=== PATIENT | female | born 1955 | race African-American/Black ===

== ENCOUNTER 2016-09-20 07:31 | Emergency (ER) | payer MEDICAID ==
[~2016-09-20] VITALS: Ht 162.6 cm; Wt 88.5 kg
[~2016-09-20 07:31] MED LIST: AMOXICILLIN500 MG ORAL; CYCLOBENZAPRINE10 MG ORAL; DIFLUCAN150 MG PO; IBUPROFEN600 MG ORAL; METFORMIN HCL500 M1 ORAL; NORCO 5-325 TA1 EACH ORAL
[2016-09-20 07:35] VITALS: BP 118/65
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
[2016-09-20] MEDS ORDERED: ACETAMINOPHEN-1 EAC1 ORAL (09:03)
[2016-09-20 09:10] VITALS: BP 119/63
--- NOTE | 2016-09-20 11:20 | Diagnostic Imaging Report ---
Indication: pain Findings: 3 views of the right hand were obtained. Bones are osteopenic. Narrowing of several joints within the wrist and digits noted. Scattered osteophytes are noted at the margins. Impression: Osteoarthritis
--- NOTE | 2016-09-22 08:29 | Diagnostic Imaging Report ---
Indication: Pain Findings: 3 views of the right shoulder were obtained. No acute fractures, malalignment, erosions or periostitis are identified. Osteopenia noted.. Soft tissues are unremarkable. Impression: Osteopenia
== END 2016-09-20 09:10 | disposition home or self-care (01) ==
LOC: EMR 08:02
DX: M25.511 Pain in right shoulder (principal); M25.541 Pain in joints of right hand; Z91.81 History of falling; E11.9 Type 2 diabetes mellitus without complications; M19.041 Primary osteoarthritis, right hand; M85.811 Other specified disorders of bone density and structure, right shoulder
CPT/HCPCS: 99284

== ENCOUNTER 2016-11-30 03:47 | Emergency (ER) | payer MEDICAID ==
[~2016-11-30] VITALS: Ht 165.1 cm; Wt 85.7 kg
[~2016-11-30 03:47] MED LIST changes: +ACETAMINOPHEN-1 EAC1 ORAL
[2016-11-30] MEDS ORDERED: GABAPENTIN100 MG ORAL (03:55)
[2016-11-30] MEDS ORDERED: Tetanus/Diptheria/Pertussis Vaccine 0.5ml Syr IM ONE (04:15)
--- NOTE | 2016-11-30 04:55 | Emergency Room Report ---
History of Present Illness General Chief Complaint: Neck Pain Source: Patient Present Illness HPI 61-year-old female presents ED complaining of neck stiffness and right knee pain. States that last night she started to develop facial pressure and stiffness in her neck. Patient states that she has a history of sinus infections and whenever she develops a sinus infection she gets neck stiffness. States her symptoms always resolve with antibiotics. Has been ear many times in the past for the same presentation. Notes 6/10 pain, throbbing, nonradiating. Denies photophobia blurry vision nausea or vomiting. Denies chest pain or shortness of breath. Denies fevers or chills. Patient states while coming to the hospital tonight she tripped and fell landing on her right knee. Tetanus unknown. Notes pain but is able to walk. No aggravating relieving factors. Denies any other systems symptoms Allergies: Coded Allergies: No Known Allergies (Unverified , 10/02/13) Patient History Past Medical History: none, DM Past Surgical History: none Pertinent Family History: none Social History: Denies: smoking, alcohol use, drug use Last Menstrual Period: none Now: No Immunizations: UTD Reviewed Nursing Documentation: PMH: Agreed, PSxH: Agreed Nursing Documentation-PMH Hx Diabetes: Yes Review of Systems All Other Systems: negative except mentioned in HPI Physical Exam Vital Signs Date Time Temp Pulse Resp B/P (MAP) Pulse Ox O2 Delivery O2 Flow Rate FiO2 11/30/16 03:50 97.9 87 18 130/83 98 Room Air Sp02 EP Interpretation: reviewed, normal General Appearance: no apparent distress, alert, GCS 15, non-toxic Head: normocephalic Eyes: bilateral eye normal inspection, bilateral eye PERRL ENT: hearing grossly normal, normal pharynx, no angioedema, normal voice, TMs + canals normal Neck: full range of motion, supple, no meningismus, supple/symm/no masses Respiratory: normal inspection Cardiovascular #1: normal inspection Gastrointestinal: normal inspection Rectal: deferred Genitourinary: no CVA tenderness Musculoskeletal: normal range of motion, tender - R knee Neurologic: alert, oriented x3, responsive, motor strength/tone normal, sensory intact, speech normal Psychiatric: normal inspection Skin: abrasions - R knee Lymphatic: normal inspection Procedures Splinting Splinting : Consent: Verbal Pre-Made Type: DARIANA wrap - R knee Pre-Proc Neuro Vasc Exam: normal Post-Proc Neuro Vasc Exam: normal Patient Tolerated: Well Complications: None Medical Decision Making Diagnostic Impression: Primary Impression: Sinus infection Qualified Codes: J01.11 - Acute recurrent frontal sinusitis Additional Impression: Knee injury Qualified Codes: S89.91XA - Unspecified injury of right lower leg, initial encounter ER Course Hospital Course 61 year-old F presents to ED complaining of R knee pain s/p fall. c/o sinus pressure and neck pain Differential diagnoses include: Fracture, dislocation, sprain, contusion Clinical course Patient placed on stretcher. After initial history and physical, I ordered pain medications and Xrays of R knee Xrays prelim read shows no acute fracture/dislocation. bacitracin applied. placed in dariana wrap, given crutches Patient has no fever. no photophobia or vomiting. patient has had prior episodes of these symptoms; always resolved with abx. my suspicion of meningitis is low Diagnosis - sinusitis, knee injury Stable and discharged to home with prescription for amoxicillin, tylenol #3. Apply ice, keep elevated. weight bear as tolerated. Followup with PMD. Return to ED if symptoms recur or worsen Other X-Ray Diagnostic Results Other X-Ray Diagnostic Results : X-Ray ordered: R knee # of Views/Limited Vs Complete: 3 View Indication: Pain EP Interpretation: Yes Interpretation: no dislocation, no soft tissue swelling, no fractures Impression: No acute disease Last Vital Signs Date Time Temp Pulse Resp B/P (MAP) Pulse Ox O2 Delivery O2 Flow Rate FiO2 11/30/16 03:50 97.9 87 18 130/83 98 Room Air Status: improved Disposition: HOME, SELF-CARE Condition: Improved Scripts Hydrocortisone/Aloe Vera 1%* (HYDROCORTISONE-ALOE 1% CREAM*) Y Cr 1 APPLIC TOPIC Q6H Y for Itching, #30 GM Prov: SHAD SMART M.D. 11/30/16 Blood Sugar Diagnostic (FREESTYLE LITE STRIPS) 1 Each Strip EACH MC 1-2 times per day, #50 Prov: SHAD SMART M.D. 11/30/16 Acetaminophen With Codeine (T#3) (TYLENOL #3 TAB*) Y Tab 1 TAB ORAL Q8H Y for For Pain, #20 TAB Prov: SHAD SMART M.D. 11/30/16 Amoxicillin* (AMOXIL*) 500 Mg Capsule 500 MG ORAL THREE TIMES A DAY, #21 CAP Prov: SHAD SMART M.D. 11/30/16 Referrals: [facility],REFERRING (PCP) SHAD SMART M.D. Nov 30, 2016 04:55
[2016-11-30 05:15] VITALS: BP 132/85
[2016-11-30] MEDS ORDERED: Bacitracin Oint UD TOPIC ONE (05:45)
[2016-11-30] MEDS ORDERED: AMOXICILLIN500 MG ORAL (05:47)
[2016-11-30] MEDS ORDERED: ACETAMINOPHEN-1 EAC1 ORAL (05:47)
[2016-11-30] MEDS ORDERED: HYDROCORTISONE-30 GM TOPIC (05:57)
[2016-11-30] MEDS ORDERED: FREESTYLE LITE1 EACH MC (05:57)
[2016-11-30 06:00] VITALS: BP 132/85
--- NOTE | 2016-11-30 11:39 | Diagnostic Imaging Report ---
Indication: Pain 3 views of the right knee were obtained. Findings: No acute fracture, malalignment, or joint effusion are identified. Joint space is relatively well-maintained. Impression: Negative for acute findings.
== END 2016-11-30 06:00 | disposition home or self-care (01) ==
LOC: EMR 04:21
DX: J01.11 Acute recurrent frontal sinusitis (principal); S89.91XA Unspecified injury of right lower leg, initial encounter; E11.9 Type 2 diabetes mellitus without complications; Z23 Encounter for immunization; W01.0XXA Fall on same level from slipping, tripping and stumbling without subsequent striking against object, initial encounter; Y92.9 Unspecified place or not applicable
CPT/HCPCS: 90471; 90715; 99284

== ENCOUNTER 2017-05-10 16:07 | Emergency (ER) | payer MEDICAID ==
[~2017-05-10] VITALS: Ht 165.1 cm; Wt 86.2 kg
[~2017-05-10 16:07] MED LIST changes: +FREESTYLE LITE1 EACH MC; +GABAPENTIN100 MG ORAL; +HYDROCORTISONE-30 GM TOPIC
[2017-05-10] MEDS ORDERED: METFORMIN HCL500 M1 ORAL (16:14)
--- NOTE | 2017-05-10 16:38 | Emergency Room Report ---
History of Present Illness General Chief Complaint: Female Urogenital Problems Source: Patient Present Illness HPI 61 YO Female presents to the ED c/o BV infection. pt. reports she used a douche which is not something she regularly does because it usually causes her BV. pt. reports that when rx'd flagyl she also gets yeast cream as she typically will get yeast after abx use. Pt. reports 10/10 in severity vaginal irritation and itching with a mild odor. Denies discharge. pt. denies recent unprotected intercourse and does not feel STD treatment needs to be considered. pt. denies fevers, chills, hematuria, frequency or urgency. Pt. denies vaginal dryness. Denies CP, Palpitations, LOC, AMS, dizziness, Changes in Vision, Sensation, paresthesias, or a sudden severe headache. Allergies: Coded Allergies: No Known Allergies (Unverified , 10/02/13) Patient History Past Medical History: see triage record Past Surgical History: none Pertinent Family History: none Last Menstrual Period: Post Reviewed Nursing Documentation: PMH: Agreed; PSxH: Agreed Nursing Documentation-PMH Hx Diabetes: Yes Review of Systems All Other Systems: negative except mentioned in HPI Physical Exam Vital Signs Date Time Temp Pulse Resp B/P (MAP) Pulse Ox O2 Delivery O2 Flow Rate FiO2 05/10/17 16:10 98.4 78 17 132/74 97 Room Air 98.4 Sp02 EP Interpretation: reviewed, normal General Appearance: no apparent distress, alert, GCS 15, non-toxic Head: normocephalic, atraumatic ENT: hearing grossly normal, normal voice Neck: full range of motion Respiratory: lungs clear, normal breath sounds, speaking full sentences Cardiovascular #1: regular rate, rhythm Gastrointestinal: normal bowel sounds, non tender, soft, non-distended, no guarding Genitourinary: normal inspection, no CVA tenderness, other - pelvic deferred by Pt. Musculoskeletal: back normal, gait/station normal, normal range of motion, non- tender Neurologic: alert, oriented x3, responsive, motor strength/tone normal, sensory intact, speech normal, grossly normal Psychiatric: judgement/insight normal Skin: normal color, no rash, warm/dry, well hydrated Medical Decision Making PA Attestation Dr. Landrum is my supervising Physician whom patient management has been discussed with. Diagnostic Impression: Primary Impression: Bacterial vaginosis Additional Impression: Vaginitis Qualified Codes: N76.0 - Acute vaginitis ER Course 61 YO Female presents to the ED c/o BV infection. pt. reports she used a douche which is not something she regularly does because it usually causes her BV. pt. reports that when rx'd Flagyl she also gets yeast cream as she typically will get yeast after abx use. Pt. reports 10/10 in severity vaginal irritation and itching with a mild odor. Denies discharge. pt. denies recent unprotected intercourse and does not feel STD treatment needs to be considered. pt. denies fevers, chills, hematuria, frequency or urgency. Pt. denies vaginal dryness. Denies CP, Palpitations, LOC, AMS, dizziness, Changes in Vision, Sensation, paresthesias, or a sudden severe headache. Ddx considered but are not limited to UTi , Pyelo, STI, Stone, Cystitis, vaginal laceration, vaginitis, atrophic vaginitis, BV just to name a few. -Pelvic is deferred by Pt. Vital signs: are WNL, pt. is afebrile H& PE are most consistent with: Vaginitis ORDERS: - UA labs are attached : Unremarkable - Most indicative of contamination: presence of equal amounts of bacteria and squamous cells, no appreciative elevation in inflammatory markers, nitrite negative. ED INTERVENTIONS: DISCHARGE: At this time pt. is stable for d/c to home. Will provide printed patient care instructions, and any necessary prescriptions. Care plan and follow up instructions have been discussed with the patient prior to discharge. discussed with the patient prior to discharge. Labs Test 05/10/17 16:20 Urine Color Pale yellow Urine Appearance Slightly cloudy Urine pH 8 (4.5-8.0) Urine Specific [place] 1.005 (1.005-1.035) Urine Protein Negative (NEGATIVE) Urine Glucose (UA) Negative (NEGATIVE) Urine Ketones Negative (NEGATIVE) Urine Occult Blood 1+ (NEGATIVE) Urine Nitrite Negative (NEGATIVE) Urine Bilirubin Negative (NEGATIVE) Urine Urobilinogen Normal MG/DL (0.0-1.0) Urine Leukocyte Esterase 2+ (NEGATIVE) Urine RBC 5-10 /HPF (0 - 2) Urine WBC 2-4 /HPF (0 - 2) Urine Squamous Epithelial Cells Many /LPF (NONE/OCC) Urine Bacteria Many /HPF (NONE) Last Vital Signs Date Time Temp Pulse Resp B/P (MAP) Pulse Ox O2 Delivery O2 Flow Rate FiO2 05/10/17 16:10 98.4 78 17 132/74 97 Room Air 98.4 Disposition: HOME, SELF-CARE Condition: Stable Scripts Miconazole Nitrate (MICONAZOLE 3) 24 Gm Cmb.pf.crm 1 APPLIC VG QHS for 3 Days, #24 GM Prov: Esther Marcum 05/10/17 Metronidazole* (FLAGYL*) 500 Mg Tablet 500 MG ORAL BID for 7 Days, #14 TAB 0 Refills Prov: Esther Marcum 05/10/17 Patient Instructions: Bacterial Vaginosis, [id number], Vaginitis Additional Instructions: Take medications as directed. ! Do not drink alcohol while taking Flagyl/Metronidazole as this will cause a skin reaction. Follow up with a Primary Care Provider in 3-5 days, even if your symptoms have resolved. --Please review list of primary care clinics, if you do not already have a primary care provider Return sooner to ED if new symptoms occur, or current symptoms become worse. - Please note that this Emergency Department Report was dictated using [employer] system operator technology software, occasionally this can lead to erroneous entry secondary to interpretation by the dictation equipment. Esther Marcum May 10, 2017 16:38
[2017-05-10] MEDS ORDERED: MICONAZOLE 324 GM VG (16:39)
[2017-05-10] MEDS ORDERED: METRONIDAZOLE500 MG ORAL (16:39)
[2017-05-10 16:45] VITALS: BP 138/79
[2017-05-10 16:59] LABS: APPEARANCE,URINE SLIGHTLY CLOUDY; BILIRUBIN, URINE NEGATIVE (NEGATIVE); COLOR,URINE PALE YELLOW; GLUCOSE, URINE (UA) NEGATIVE (NEGATIVE); KETONES,URINE NEGATIVE (NEGATIVE); LEUKOCYTE ESTERASE ,URINE 2+ (NEGATIVE); NITRITE,URINE NEGATIVE (NEGATIVE); PH,URINE 8 (4.5-8.0); PROTEIN,URINE NEGATIVE (NEGATIVE); UROBILINOGEN,URINE NORMAL MG/DL (0.0-1.0)
[2017-05-10 17:00] VITALS: BP 132/74
== END 2017-05-10 17:30 | disposition home or self-care (01) ==
LOC: EMR 16:30
DX: N76.0 Acute vaginitis (principal); B96.89 Other specified bacterial agents as the cause of diseases classified elsewhere; E11.9 Type 2 diabetes mellitus without complications
CPT/HCPCS: 81003; 87086; 99284

== ENCOUNTER 2017-05-13 16:19 | Emergency (ER) | payer MEDICAID ==
[~2017-05-13] VITALS: Ht 170.2 cm; Wt 74.8 kg
[~2017-05-13 16:19] MED LIST changes: +METRONIDAZOLE500 MG ORAL; +MICONAZOLE 324 GM VG
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
[2017-05-13] MEDS ORDERED: Norco 5mg/325mg tab ORAL ONE (16:45)
[2017-05-13 17:05] VITALS: BP 112/60
[2017-05-13] MEDS ORDERED: ROBAXIN-750750 MG PO (17:05)
[2017-05-13] MEDS ORDERED: IBUPROFEN600 MG ORAL (17:05)
[2017-05-13 17:30] VITALS: BP 115/78
--- NOTE | 2017-05-14 10:43 | Diagnostic Imaging Report ---
. Indication: Chest pain Technique: XRAY Chest 1v Comparison: None Findings: Slightly rotated and leaning to the left. Heart size within upper limits for normal. Mediastinal contours are sharp. There is no definite focal airspace consolidation. No pleural effusion or pneumothorax. No acute osseous abnormality seen. IMPRESSION: Limited exam due to patient positioning. No definite radiographic evidence of acute cardiopulmonary disease.
== END 2017-05-13 17:30 | disposition home or self-care (01) ==
LOC: EMR 16:35
DX: S20.219A Contusion of unspecified front wall of thorax, initial encounter (principal); E11.9 Type 2 diabetes mellitus without complications; V13.4XXA Pedal cycle driver injured in collision with car, pick-up truck or van in traffic accident, initial encounter; Y93.55 Activity, bike riding; Y92.410 Unspecified street and highway as the place of occurrence of the external cause
CPT/HCPCS: 71045; 99284

== ENCOUNTER 2017-07-13 19:42 | Inpatient (IN) | payer MEDICAID ==
[~2017-07-13] VITALS: Ht 162.6 cm; Wt 86.8 kg
[~2017-07-13 19:42] MED LIST changes: +ROBAXIN-750750 MG PO
[2017-07-13 19:50] VITALS: BP 120/76
[2017-07-13] MEDS ORDERED: Isovue-300 100ml vial INJ PRN (20:00)
[2017-07-13 20:12] LABS: APPEARANCE,URINE CLEAR; BILIRUBIN, URINE NEGATIVE (NEGATIVE); COLOR,URINE PALE YELLOW; GLUCOSE, URINE (UA) NEGATIVE (NEGATIVE); KETONES,URINE NEGATIVE (NEGATIVE); LEUKOCYTE ESTERASE ,URINE 1+ (NEGATIVE); NITRITE,URINE NEGATIVE (NEGATIVE); PH,URINE 9 (4.5-8.0); PROTEIN,URINE 2+ (NEGATIVE); UROBILINOGEN,URINE NORMAL MG/DL (0.0-1.0)
[2017-07-13 20:28] LABS: BASOPHILS % (AUTO) 0.9 % (0.0-2.0); EOSINOPHILS % (AUTO) 2.2 % (0.0-3.0); HEMOGLOBIN 12.4 G/DL (12.0-16.0); LYMPHOCYTES % (AUTO) 24.6 % (20.0-45.0); MEAN CORPUSCULAR VOLUME 78 FL (80-99); MONOCYTES % (AUTO) 3.7 % (1.0-10.0); NEUTROPHILS % (AUTO) 68.7 % (45.0-75.0); PLATELET COUNT 322 K/UL (150-450); RED BLOOD COUNT 5.02 M/UL (4.20-5.40); RED CELL DISTRIBUTION WIDTH 14.1 % (11.6-14.8); WHITE BLOOD COUNT 8.4 K/UL (4.8-10.8)
[2017-07-13 20:36] LABS: ANION GAP 9 mmol/L (5-15); BLOOD UREA NITROGEN 15 mg/dL (7-18); CALCIUM 9.5 MG/DL (8.5-10.1); CARBON DIOXIDE 29 MMOL/L (21-32); CHLORIDE 107 MMOL/L (98-107); POTASSIUM 4.3 MMOL/L (3.5-5.1); SODIUM 145 MMOL/L (136-145)
[2017-07-13 20:42] LABS: ALANINE AMINOTRANSFERASE 38 U/L (12-78); ALBUMIN 3.5 G/DL (3.4-5.0); ALKALINE PHOSPHATASE 78 U/L (46-116); ASPARTATE AMINO TRANSFERASE 22 U/L (15-37); BILIRUBIN,TOTAL 0.2 MG/DL (0.2-1.0)
--- NOTE | 2017-07-13 20:57 | Emergency Room Report ---
History of Present Illness General Chief Complaint: Abdominal Pain Source: Patient Present Illness HPI Patient complains of upper abdominal pain for the past day. She has had nausea and one episode of vomiting. She does have a history of gastritis. She denies fever or chills. She denies dysuria or hematuria. She has no other complaints. Allergies: Coded Allergies: No Known Allergies (Unverified , 10/02/13) Patient History Past Medical History: see triage record, DM, other - HLP Social History: Denies: smoking, alcohol use, drug use Reviewed Nursing Documentation: PMH: Agreed; PSxH: Agreed Nursing Documentation-PMH Past Medical History: No History, Except For Hx Diabetes: Yes Review of Systems All Other Systems: negative except mentioned in HPI Physical Exam Vital Signs Date Time Temp Pulse Resp B/P (MAP) Pulse Ox O2 Delivery O2 Flow Rate FiO2 07/13/17 19:43 97.9 82 16 115/75 96 Room Air 97.9 Sp02 EP Interpretation: reviewed, normal General Appearance: no apparent distress, alert, GCS 15, non-toxic Head: normocephalic, atraumatic Eyes: bilateral eye normal inspection, bilateral eye PERRL ENT: hearing grossly normal, normal pharynx, no angioedema, normal voice Neck: full range of motion, supple/symm/no masses Respiratory: chest non-tender, lungs clear, normal breath sounds, no respiratory distress, no retraction, no accessory muscle use, speaking full sentences Cardiovascular #1: regular rate, rhythm, no edema Gastrointestinal: normal bowel sounds, soft, non-distended, no guarding, no rebound, tenderness - TTP upper abdomen and RUQ Rectal: deferred Musculoskeletal: back normal, gait/station normal, normal range of motion, non- tender Neurologic: alert, oriented x3, responsive, motor strength/tone normal, sensory intact, speech normal Psychiatric: judgement/insight normal, memory normal, mood/affect normal, no suicidal/homicidal ideation Skin: normal color, no rash, warm/dry, well hydrated Medical Decision Making Diagnostic Impression: Primary Impression: Choledocholithiasis Additional Impressions: Cholelithiasis Abdominal pain ER Course This patient was found to have cholelithiasis and a dilated common bile duct up to 11 mm. Possibly this patient has early choledocho cholelithiasis versus recent passage of a gallstone through the common bile duct. Patient's laboratory workup is unremarkable, specifically liver function tests and lipase. The patient also responded to Zofran and IV Pepcid. Given the patient' s findings on ultrasound, I felt I should admit this patient to observation overnight for monitoring and repeat labs and further evaluation by gastroenterology in the morning. The patient is admitted to the medical surgical floor. Laboratory Tests Test 07/13/17 19:55 07/13/17 20:15 Urine Color Pale yellow Urine Appearance Clear Urine pH 9 (4.5-8.0) Urine Specific [place] 1.015 (1.005-1.035) Urine Protein 2+ (NEGATIVE) H Urine Glucose (UA) Negative (NEGATIVE) Urine Ketones Negative (NEGATIVE) Urine Occult Blood Negative (NEGATIVE) Urine Nitrite Negative (NEGATIVE) Urine Bilirubin Negative (NEGATIVE) Urine Urobilinogen Normal MG/DL (0.0-1.0) Urine Leukocyte Esterase 1+ (NEGATIVE) H Urine RBC 0-2 /HPF (0 - 2) Urine WBC 2-4 /HPF (0 - 2) Urine Squamous Epithelial Cells Few /LPF (NONE/OCC) Urine Amorphous Sediment Moderate /LPF (NONE) H Urine Bacteria Few /HPF (NONE) White Blood Count 8.4 K/UL (4.8-10.8) Red Blood Count 5.02 M/UL (4.20-5.40) Hemoglobin 12.4 G/DL (12.0-16.0) Hematocrit 39.0 % (37.0-47.0) Mean Corpuscular Volume 78 FL (80-99) L Mean Corpuscular Hemoglobin 24.7 PG (27.0-31.0) L Mean Corpuscular Hemoglobin Concent 31.8 G/DL (32.0-36.0) L Red Cell Distribution Width 14.1 % (11.6-14.8) Platelet Count 322 K/UL (150-450) Mean Platelet Volume 6.9 FL (6.5-10.1) Neutrophils (%) (Auto) 68.7 % (45.0-75.0) Lymphocytes (%) (Auto) 24.6 % (20.0-45.0) Monocytes (%) (Auto) 3.7 % (1.0-10.0) Eosinophils (%) (Auto) 2.2 % (0.0-3.0) Basophils (%) (Auto) 0.9 % (0.0-2.0) Sodium Level 145 MMOL/L (136-145) Potassium Level 4.3 MMOL/L (3.5-5.1) Chloride Level 107 MMOL/L (98-107) Carbon Dioxide Level 29 MMOL/L (21-32) Anion Gap 9 mmol/L (5-15) Blood Urea Nitrogen 15 mg/dL (7-18) Creatinine 1.0 MG/DL (0.55-1.30) Estimate Glomerular Filtration Rate > 60 mL/min (>60) Glucose Level 162 MG/DL (74-106) H Calcium Level 9.5 MG/DL (8.5-10.1) Total Bilirubin 0.2 MG/DL (0.2-1.0) Aspartate Amino Transferase (AST) 22 U/L (15-37) Alanine Aminotransferase (ALT) 38 U/L (12-78) Alkaline Phosphatase 78 U/L (46-116) Troponin I 0.000 ng/mL (0.000-0.056) Total Protein 7.1 G/DL (6.4-8.2) Albumin 3.5 G/DL (3.4-5.0) Globulin 3.6 g/dL Albumin/Globulin Ratio 1.0 (1.0-2.7) Lipase 129 U/L (73-393) EKG Diagnostic Results Rate: normal Rhythm: NSR ST Segments: no acute changes Rhythm Strip Diag. Results EP Interpretation: yes Rate: 60's Rhythm: NSR, no PVC's, no ectopy CT/MRI/US Diagnostic Results CT/MRI/US Diagnostic Results : Imaging Test Ordered: US ruq Impression Cholelithiasis. Dilated common bile duct, up to 11 mm. No evidence of cholecystitis. See official report. Last Vital Signs Date Time Temp Pulse Resp B/P (MAP) Pulse Ox O2 Delivery O2 Flow Rate FiO2 07/13/17 19:43 97.9 82 16 115/75 96 Room Air 97.9 Disposition: ADMITTED INPATIENT Condition: Stable Referrals: [facility],REFERRING (PCP) MADI MIRANDA D.O. Jul 13, 2017 20:57
[2017-07-13 22:12] VITALS: BP 117/68
[2017-07-14 00:25] VITALS: BP 120/72
[2017-07-14 01:00] VITALS: BP 138/72
[2017-07-14] MEDS: HYDROmorphone 2mg tab ORAL PRN ×2 (02:39→10:14)
[2017-07-14] MEDS: NovoLOG Insulin Flexpen SUBQ SCH ×4 (05:33→20:44)
[2017-07-14 08:00] VITALS: BP 126/69
[2017-07-14] MEDS: Enoxaparin 40mg Inj SUBQ SCH (09:00)
--- NOTE | 2017-07-14 09:31 | Diagnostic Imaging Report ---
Clinical Indication: Abdominal pain, nausea, vomiting x5 days Technique: No oral contrast utilized, per emergency room physician request IV administration nonionic contrast. Venous phase spiral acquisition obtained through the abdomen and pelvis. Multiplanar reconstructions were generated. Total dose length product 755.8 mGycm. CTDIvol(s) 16.82 mGy. Dose reduction achieved using automated exposure control Comparison: No comparison CTs. Reference made to ultrasound performed earlier the same day Findings: Normal appendix. There is colonic diverticulosis. No evidence of acute diverticulitis. No small bowel distention. No free or loculated intraperitoneal air or fluid. The distal esophagus, stomach, duodenum are unremarkable. The gallbladder contains gallstones. There is some dilatation of the common hepatic duct which measures up to 12 mm diameter, but the downstream common bile duct is normal in caliber and no downstream obstructive lesion is demonstrated. The downstream pancreatic duct is also mildly ectatic. The liver, pancreas, spleen, adrenals are unremarkable. The left kidney demonstrates a 4 cm interpolar region simple cyst. The right kidney demonstrates a subcentimeter lower pole low-attenuation lesion which is too small to characterize. No retroperitoneal or mesenteric mass or adenopathy. No pelvic mass or adenopathy. Normal uterus and ovaries. The included lung bases are clear. The bones demonstrate mild degenerative spondylosis changes Impression: No acute abnormality Cholelithiasis. No secondary signs of acute cholecystitis Dilated common hepatic duct and upstream common bile duct but no definite downstream obstructive lesion. Correlate with liver function tests, consider MRCP if clinically indicated Colonic diverticulosis. No evidence of diverticulitis Left renal cyst. Right renal subcentimeter low-attenuation lesion, too small to characterize, most likely benign simple cysts. No further follow-up necessary Incidental finding of degenerative spondylosis This agrees with the preliminary interpretation provided overnight by [facility] teleradiology service. The CT scanner at [facility] is accredited by the [employer] and the scans are performed using protocols designed to limit radiation exposure to as low as reasonably achievable to attain images of sufficient resolution adequate for diagnostic evaluation.
[2017-07-14 09:34] LABS: ANION GAP 5 mmol/L (5-15); BLOOD UREA NITROGEN 9 mg/dL (7-18); CARBON DIOXIDE 30 MMOL/L (21-32); CHLORIDE 109 MMOL/L (98-107); CREATININE 0.9 MG/DL (0.55-1.30); POTASSIUM 3.9 MMOL/L (3.5-5.1); SODIUM 144 MMOL/L (136-145)
[2017-07-14] MEDS: Docusate 100mg cap ORAL SCH ×2 (10:13→20:41)
--- NOTE | 2017-07-14 10:40 | Diagnostic Imaging Report ---
Indication: Abdominal pain, elevated glucose Technique: Spivey-scale and duplex images of the upper abdomen were obtained Comparison: none Findings: Gallbladder demonstrates gallstones. No gallbladder wall thickening nor pericholecystic fluid Sonographic Rodríguez's sign is negative. Common bile duct measures 11 mm in diameter. No intrahepatic biliary ductal dilatation. Liver demonstrates normal echogenicity. Focus of slightly increased echogenicity is seen within the right hepatic lobe, measures 19 mm in diameter seen only on transverse images. Portal vein and hepatic veins are patent. Pancreas is unremarkable. Spleen is unremarkable. Left kidney measures 10.7 cm in length. Right kidney measures 10.2 cm length. Both kidneys demonstrate normal echogenicity. There is no hydronephrosis. The left kidney demonstrates a 3.7 cm cyst. . Non-aneurysmal abdominal aorta . Impression: Cholelithiasis 11 mm common bile duct. Downstream obstruction a possibility, although none demonstrated on subsequent CT. Correlate with liver function tests Apparent 19 mm subtle hyperechoic lesion in the right hepatic lobe. Suspect artifactual, as no abnormality is seen on subsequent CT 3.7 cm left renal cyst incidentally noted This essentially agrees with the preliminary interpretation provided overnight by [facility]
--- NOTE | 2017-07-14 13:51 | Cardiology Report ---
APPROVED REPORT EKG Measurement Heart [id number] Normal sinus rhythm Normal ECG
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
--- NOTE | 2017-07-14 17:01 | Diagnostic Imaging Report ---
Indication: Abdominal pain, dilated common bile duct seen on recent CT and ultrasound Technique: Coronal and axial single shot fast spin-echo breath-hold, axial T2 FRFSE, 2-D thick slab MRCP, AXIAL 2-D FIESTA fat saturated, axial 3-D dual echo breath-hold, water weighted axial LAVA FLEX, revealed 3-D MRCP images were obtained of the abdomen. MIP reconstructions were generated of the bile ducts Comparison: Reference made to abdomen CT and ultrasound 07/13/2017 Findings: There is some image degradation due to respiratory motion artifact. Multiple filling defects are seen within the gallbladder lumen, consistent with gallstones described on recent CT scan. There is also suggestion of filling defects within the gallbladder neck and possibly the cystic duct. The gallbladder is not distended, and is no evidence of gallbladder wall thickening or infiltration of the pericholecystic fat, but a small amount of fluid is seen in Morison's pouch. As described on the previous studies, the common hepatic duct and common bile duct aren't dilated, the latter measuring up to 12 mm in diameter. There is mild central intrahepatic biliary ductal dilatation as well. A tiny low signal focus is seen slightly above the expected position of the ampulla. Review of recent CT suggests this is probably just a gas bubble trapped within mucosal folds. No definite distal common bile duct stone or ampullary mass demonstrated. No definite pancreatic head mass demonstrated. The pancreatic duct is also ectatic, measuring up to 6 mm in diameter within the pancreatic head. It also demonstrates smooth tapering at the level of the ampulla. No focal liver lesions are demonstrated. No focal pancreatic lesions. The spleen and adrenals are unremarkable. A cyst is seen in the interpolar region of the left kidney, and a tiny cyst in the lower pole of the right kidney. Impression: Cholelithiasis. Possible stone or stones in the gallbladder neck and/or cystic duct and trace fluid in Morison's pouch does raise the possibility of acute cholecystitis, although lack of gallbladder distention and lack of gallbladder wall thickening makes this less likely. Consider nuclear medicine hepatobiliary scan if there is high clinical suspicion Dilated extra hepatic ducts and mildly dilated central intrahepatic ducts. No definite downstream stone or obstructive mass demonstrated, although occult ampullary lesion or small stone is certainly possible. Hepatobiliary nuclear imaging May likewise useful to establish absence or presence of, bile duct patency. Alternatively, direct visualization and endoscopic sonography may also be useful Dilated pancreatic duct, likewise without definite downstream obstruction. Significance uncertain. Correlate with pancreatic enzymes Incidental finding of bilateral renal cysts
--- NOTE | 2017-07-14 17:45 | History and Physical Report ---
DATE OF ADMISSION: 07/13/2017 REASON FOR ADMISSION: 1. Right upper quadrant abdominal pain. 2. Nausea and vomiting. HISTORY OF PRESENT ILLNESS: The patient is a pleasant 61-year-old female who presented to the emergency room complaining of 1 to 2 days of upper abdominal quadrant pain with episodes of nausea and vomiting. She noted a history of no fevers or chills. No chest pain. No shortness of breath, but did have a history of gastritis in the emergency room. The patient was noted to have cholelithiasis and a dilated common bile duct of 11 mm. As such, she was admitted for evaluation of abdominal pain and choledocholithiasis. The patient is feeling much better today and says the abdominal pain has resolved since she stopped eating overnight. PAST MEDICAL HISTORY: 1. Diabetes mellitus. 2. Gastritis. 3. Neuropathy. ALLERGIES: No known drug allergies. FAMILY HISTORY: Positive for hypertension. SOCIAL HISTORY: No tobacco, alcohol, or illicit drug use. REVIEW OF SYSTEMS: NEUROLOGIC: The patient denies headache, change in vision, syncope or presyncopal episodes. CARDIOVASCULAR: No current chest pain, palpitations, or angina. PULMONARY: No difficulty breathing, productive cough, or sputum. GASTROINTESTINAL/GENITOURINARY: The patient having right upper quadrant pain with nausea and vomiting. No diarrhea. ENDOCRINOLOGY: No fever or chills. MUSCULOSKELETAL: The patient feeling weak, tired and fatigue. PHYSICAL EXAMINATION: GENERAL: The patient awake, alert, not otherwise stress. VITAL SIGNS: Blood pressure 148/72, pulse oximetry 99% on room air, respiratory rate 18, pulse 76, and temperature 97.8 degrees. HEENT: Extraocular muscles intact. No lymphadenopathy noted. CARDIOVASCULAR: S1 and S2. No rubs or gallops. PULMONARY: Clear to auscultation bilaterally. No rales, rhonchi or wheezes. ABDOMEN: Nondistended and nontender. EXTREMITIES: No edema noted. LABORATORY AND DIAGNOSTIC DATA: , white cell count 8.4, hemoglobin 12.4, and platelet count 322. Sodium 145, potassium 4.3, BUN 15, creatinine 1, calcium 9.5, and glucose 162. Troponin of 0. Lipase 129. ASSESSMENT AND PLAN: 1. Right upper quadrant pain, most likely secondary to choledocholithiasis with a dilated common bile duct of 11 mm. At this time, GI and General Surgery have been consulted for evaluation and further management. The patient NPO until recommendations are made. Continue IV fluid hydration. 2. Diabetes mellitus. Insulin sliding scale with Accu-Cheks. Metformin currently being held. The patient did undergo CT of the abdomen and pelvis with IV contrast. 3. Neuropathy. Continue Neurontin. 4. DVT prophylaxis with Lovenox. Jono Patel MD DR: NOA JOB#: [id number] CC: SPARKLE
[2017-07-14 20:00] VITALS: BP 140/69
[2017-07-15] VITALS: BP 113/69
[2017-07-15 04:00] VITALS: BP 120/71
[2017-07-15] MEDS: NovoLOG Insulin Flexpen SUBQ SCH ×2 (06:13→11:30)
[2017-07-15 08:14] LABS: EOSINOPHILS % (AUTO) 4.4 % (0.0-3.0); HEMATOCRIT 37.6 % (37.0-47.0); HEMOGLOBIN 11.8 G/DL (12.0-16.0); LYMPHOCYTES % (AUTO) 46.5 % (20.0-45.0); MEAN CORPUSCULAR VOLUME 79 FL (80-99); MONOCYTES % (AUTO) 4.5 % (1.0-10.0); NEUTROPHILS % (AUTO) 43.6 % (45.0-75.0); PLATELET COUNT 305 K/UL (150-450); RED BLOOD COUNT 4.77 M/UL (4.20-5.40); RED CELL DISTRIBUTION WIDTH 14.1 % (11.6-14.8); WHITE BLOOD COUNT 6.1 K/UL (4.8-10.8)
[2017-07-15 08:37] LABS: ANION GAP 7 mmol/L (5-15); BLOOD UREA NITROGEN 9 mg/dL (7-18); CALCIUM 8.7 MG/DL (8.5-10.1); CARBON DIOXIDE 28 MMOL/L (21-32); CHLORIDE 108 MMOL/L (98-107); CREATININE 0.9 MG/DL (0.55-1.30); POTASSIUM 3.9 MMOL/L (3.5-5.1); SODIUM 143 MMOL/L (136-145)
--- NOTE | 2017-07-15 08:59 | Nephrology Progress Note ---
Assessment/Plan Assessment/Plan 1. ABD Pain- RUQ - Possible stone or stones in the gallbladder neck and/or cystic duct and trace fluid in Morison's pouch does raise the possibility of acute cholecystitis, although lack of gallbladder distention and lack of gallbladder wall thickening makes this less likely. -Dilated extra hepatic ducts and mildly dilated central intrahepatic ducts. No definite downstream stone or obstructive mass demonstrated, although occult ampullary lesion or small stone is certainly possible - await Gen Surg and GI to discuss options with patient moving forward 2. DM- ISS and accuchecks 3. DVT prophylaxsis- with lovenox Subjective Date patient seen: Jul 15, 2017 Time patient seen: 08:55 ROS Limited/Unobtainable: No Allergies: Coded Allergies: No Known Allergies (Unverified , 10/02/13) All Systems: reviewed and negative except above Subjective Patient feeling better. No ABD pain Objective Last 24 Hour Vital Signs Date Time Temp Pulse Resp B/P (MAP) Pulse Ox O2 Delivery O2 Flow Rate FiO2 07/15/17 04:00 98.1 65 0 120/71 100 Room Air 98.1 07/15/17 00:00 98.0 60 20 113/69 97 Room Air 98.0 07/14/17 20:00 98.0 68 20 140/69 100 Room Air 98.0 Intake and Output 07/14/17 07/15/17 19:00 07:00 Intake Total 675 ml 900 ml Balance 675 ml 900 ml IV Total 675 ml 900 ml # Voids 3 5 Laboratory Tests 07/14/17 09:05: Sodium Level 144, Potassium Level 3.9, Chloride Level 109H, Carbon Dioxide Level 30, Anion Gap 5, Blood Urea Nitrogen 9, Creatinine 0.9, Estimat Glomerular Filtration Rate > 60, Glucose Level 93, Calcium Level 9.0 07/15/17 06:50: Sodium Level 143, Potassium Level 3.9, Chloride Level 108H, Carbon Dioxide Level 28, Anion Gap 7, Blood Urea Nitrogen 9, Creatinine 0.9, Estimat Glomerular Filtration Rate > 60, Glucose Level 87, Calcium Level 8.7, White Blood Count 6.1, Red Blood Count 4.77, Hemoglobin 11.8L, Hematocrit 37.6, Mean Corpuscular Volume 79L, Mean Corpuscular Hemoglobin 24.8L, Mean Corpuscular Hemoglobin Concent 31.4L, Red Cell Distribution Width 14.1, Platelet Count 305, Mean Platelet Volume 7.2, Neutrophils (%) (Auto) 43.6L, Lymphocytes (%) (Auto) 46.5H, Monocytes (%) (Auto) 4.5, Eosinophils (%) (Auto) 4.4H, Basophils (%) ( Auto) 1.0 Height (Feet): 5 Height (Inches): 4.00 Weight (Pounds): 191 General Appearance: no apparent distress, alert EENT: normal ENT inspection Neck: normal alignment, supple Cardiovascular: normal rate, regular rhythm Respiratory/Chest: lungs clear, normal breath sounds Abdomen: non tender, soft Edema: no edema noted Arm (L), no edema noted Arm (R), no edema noted Leg (L), no edema noted Leg (R), no edema noted Pedal (L), no edema noted Pedal (R), no edema noted Generalized Jono Patel M.D. Jul 15, 2017 08:59
[2017-07-15 09:00] VITALS: BP 116/66
[2017-07-15] MEDS: Enoxaparin 40mg Inj SUBQ SCH (09:00)
[2017-07-15] MEDS: Docusate 100mg cap ORAL SCH (09:35)
--- NOTE | 2017-07-15 11:09 | GI Progress Note ---
Assessment/Plan Problems: (1) Abdominal pain ICD Codes: R10.9 - Unspecified abdominal pain SNOMED: [id number] Qualifiers: Qualified Codes: R10.13 - Epigastric pain (2) Cholelithiasis ICD Codes: K80.20 - Calculus of gallbladder without cholecystitis without obstruction SNOMED: [id number] Status: stable Status Narrative Discussed with Dr. Finley. Assessment/Plan MRCP reviewed, see full report >> - Cholelithiasis. Possible stone or stones in the gallbladder neck and/or cystic duct and trace fluid in Morison's pouch does raise the possibility of acute cholecystitis, although lack of gallbladder distention and lack of gallbladder wall thickening makes this less likely. - Dilated extra hepatic ducts and mildly dilated central intrahepatic ducts. No definite downstream stone or obstructive mass demonstrated, although occult ampullary lesion or small stone is certainly possible. - Dilated pancreatic duct, likewise without definite downstream obstruction. okay for DC per GI standpoint adv diet recommend follow up imaging study 6 months from now. Subjective Gastrointestinal/Abdominal: Reports: no symptoms Objective Last 24 Hour Vital Signs Date Time Temp Pulse Resp B/P (MAP) Pulse Ox O2 Delivery O2 Flow Rate FiO2 07/15/17 09:00 98.1 82 0 116/66 100 Room Air 98.1 07/15/17 04:00 98.1 65 0 120/71 100 Room Air 98.1 07/15/17 00:00 98.0 60 20 113/69 97 Room Air 98.0 07/14/17 20:00 98.0 68 20 140/69 100 Room Air 98.0 Intake and Output 07/14/17 07/15/17 19:00 07:00 Intake Total 675 ml 900 ml Balance 675 ml 900 ml IV Total 675 ml 900 ml # Voids 3 5 Laboratory Tests Test 07/15/17 06:50 White Blood Count 6.1 K/UL (4.8-10.8) Red Blood Count 4.77 M/UL (4.20-5.40) Hemoglobin 11.8 G/DL (12.0-16.0) L Hematocrit 37.6 % (37.0-47.0) Mean Corpuscular Volume 79 FL (80-99) L Mean Corpuscular Hemoglobin 24.8 PG (27.0-31.0) L Mean Corpuscular Hemoglobin Concent 31.4 G/DL (32.0-36.0) L Red Cell Distribution Width 14.1 % (11.6-14.8) Platelet Count 305 K/UL (150-450) Mean Platelet Volume 7.2 FL (6.5-10.1) Neutrophils (%) (Auto) 43.6 % (45.0-75.0) L Lymphocytes (%) (Auto) 46.5 % (20.0-45.0) H Monocytes (%) (Auto) 4.5 % (1.0-10.0) Eosinophils (%) (Auto) 4.4 % (0.0-3.0) H Basophils (%) (Auto) 1.0 % (0.0-2.0) Sodium Level 143 MMOL/L (136-145) Potassium Level 3.9 MMOL/L (3.5-5.1) Chloride Level 108 MMOL/L (98-107) H Carbon Dioxide Level 28 MMOL/L (21-32) Anion Gap 7 mmol/L (5-15) Blood Urea Nitrogen 9 mg/dL (7-18) Creatinine 0.9 MG/DL (0.55-1.30) Estimat Glomerular Filtration Rate > 60 mL/min (>60) Glucose Level 87 MG/DL (74-106) Calcium Level 8.7 MG/DL (8.5-10.1) Height (Feet): 5 Height (Inches): 4.00 Weight (Pounds): 191 General Appearance: WD/WN, no apparent distress, alert Cardiovascular: normal rate Respiratory/Chest: normal breath sounds, no respiratory distress Abdominal Exam: normal bowel sounds, non tender, soft Extremities: normal range of motion, non-tender Manuel Darby NP Jul 15, 2017 11:09
--- NOTE | 2017-07-15 12:24 | General Surgery Progress Note ---
General Surgery-Progress Note Subjective Symptoms: improved Additional Comments pain improved. no n/v/f/c. comfortable. MRCP reviewed. Objective Last 24 Hour Vital Signs Date Time Temp Pulse Resp B/P (MAP) Pulse Ox O2 Delivery O2 Flow Rate FiO2 07/15/17 09:00 98.1 82 0 116/66 100 Room Air 98.1 07/15/17 04:00 98.1 65 0 120/71 100 Room Air 98.1 07/15/17 00:00 98.0 60 20 113/69 97 Room Air 98.0 07/14/17 20:00 98.0 68 20 140/69 100 Room Air 98.0 I&O Intake and Output 07/14/17 07/15/17 19:00 07:00 Intake Total 675 ml 900 ml Balance 675 ml 900 ml IV Total 675 ml 900 ml # Voids 3 5 Drains: none Cardiovascular: RSR Respiratory: clear Abdomen: soft, flat, non-tender, present bowel sounds Extremities: no edema, no tenderness, no cyanosis Laboratory Tests Test 07/15/17 06:50 White Blood Count 6.1 K/UL (4.8-10.8) Red Blood Count 4.77 M/UL (4.20-5.40) Hemoglobin 11.8 G/DL (12.0-16.0) L Hematocrit 37.6 % (37.0-47.0) Mean Corpuscular Volume 79 FL (80-99) L Mean Corpuscular Hemoglobin 24.8 PG (27.0-31.0) L Mean Corpuscular Hemoglobin Concent 31.4 G/DL (32.0-36.0) L Red Cell Distribution Width 14.1 % (11.6-14.8) Platelet Count 305 K/UL (150-450) Mean Platelet Volume 7.2 FL (6.5-10.1) Neutrophils (%) (Auto) 43.6 % (45.0-75.0) L Lymphocytes (%) (Auto) 46.5 % (20.0-45.0) H Monocytes (%) (Auto) 4.5 % (1.0-10.0) Eosinophils (%) (Auto) 4.4 % (0.0-3.0) H Basophils (%) (Auto) 1.0 % (0.0-2.0) Sodium Level 143 MMOL/L (136-145) Potassium Level 3.9 MMOL/L (3.5-5.1) Chloride Level 108 MMOL/L (98-107) H Carbon Dioxide Level 28 MMOL/L (21-32) Anion Gap 7 mmol/L (5-15) Blood Urea Nitrogen 9 mg/dL (7-18) Creatinine 0.9 MG/DL (0.55-1.30) Estimat Glomerular Filtration Rate > 60 mL/min (>60) Glucose Level 87 MG/DL (74-106) Calcium Level 8.7 MG/DL (8.5-10.1) Plan Problems: (1) Abdominal pain Assessment & Plan: epigastric abdominal pain, acute onset, no radiation +n/v. afebrile,HD stable, labs normal. lft's okay. lipase okay. no leukocytosis. CT/US with dilated CBD/HD but no definitive obstruction. +cholelithiasis. no noted choledocholithiasis. no signs of acute cholecystitis. epigastric pain could possibly be biliary colic which is resolved or gastritis. no evidence of choledocholithiasis. does have dilated CBD well above limits of normal for her age. MRCP reviewed and no obstruction noted diet as tolerated d/c from surgical standpoint clear instructions given to patient for follow up. she is to see her pcp as outpatient and establish care. have surgical follow up as outpatient once referred by pcp. will follow with recs. thank you for this consultation Magen Paredes Jul 15, 2017 12:24
--- NOTE | 2017-07-15 23:45 | Discharge Summary ---
DATE OF ADMISSION: 07/13/2017 DATE OF DISCHARGE: 07/15/2017 CONSULTANTS DURING HOSPITALIZATION: 1. Christian Finley M.D., Gastroenterology. 2. Magen Paredes M.D., General Surgery. HOSPITAL COURSE: The patient is a 61-year-old female, who was admitted on 07/14/2017 for further evaluation and care of right upper quadrant pain. Upon presentation to the emergency room, the patient did undergo CT of the abdomen and pelvis with IV contrast that did note a dilated 11 mm common bile duct. As such, the patient was admitted for the possibility of choledocholithiasis and further investigations. During her hospitalization, the patient was placed on NPO and did extremely well. Pain resolved. She did undergo further testing with abdominal MRI/MRCP, which noted possible stone or stones in the gallbladder, neck, and/or cystic duct and trace fluid in the Morison's pouch, although lack of gallbladder distention or thickening of the gallbladder wall pointing more towards no acute cholecystitis. The patient did very well during her hospitalization at that time. Both GI and Surgery cleared the patient for discharge with no further intervention required. The patient was able to eat without any further abdominal pain and was discharged in stable condition. DISCHARGE CONDITION: Stable. DISCHARGE DIAGNOSES: 1. Abdominal pain. 2. Dilated common bile duct. FOLLOWUP POST HOSPITALIZATION: 1. The patient is to follow up with Dr. Finley, Gastroenterology in 4 to 6 months. 2. The patient is to follow up with General Surgery in 4 to 6 months. 3. The patient is stable for discharge today and is to follow up with Gastroenterology in 4 to 6 months. Jono Patel MD DR: CHINEDU JOB#: [id number] CC:
== END 2017-07-15 14:50 | disposition home or self-care (01) ==
LOC: EMR 20:46 → 4E 23:12 → EDBEDREQ 23:53
DX: K80.50 Calculus of bile duct without cholangitis or cholecystitis without obstruction (principal); E11.40 Type 2 diabetes mellitus with diabetic neuropathy, unspecified; Z79.84 Long term (current) use of oral hypoglycemic drugs
CPT/HCPCS: 36415; 74177; 74181; 76700; 80048; 80053; 81003; 82962; 83690; 84484; 85025; 93005; 99285; J1815; J2405

== ENCOUNTER 2017-11-17 12:13 | Emergency (ER) | payer MEDICAID ==
[~2017-11-17] VITALS: Ht 162.6 cm; Wt 83.0 kg
[~2017-11-17 12:13] MED LIST changes: +CEPHALEXIN500 MG ORAL; +KENALOG 0.025%15 GM APPLIC
[2017-11-17] MEDS ORDERED: PROMETHAZI6.25 MG/1 ORAL (12:47)
--- NOTE | 2017-11-17 12:47 | Emergency Room Report ---
History of Present Illness General Chief Complaint: Upper Respiratory Illness Source: Patient Present Illness HPI 62-year-old female patient presents ER complaining of cough 1 day and stating "I need cough medication".. Reports dry cough. Denies hemoptysis. Denies fever, chest pain, shortness of breath. Patient is currently being seen in the ER with her grandson who is here for an earache. Patient denies past medical history of bronchitis, heart attack, CHF. Denies calf pain. Denies recent travel. Denies recent immobilization. Reports history of smoking 1 cigarette a day intermittently. Denies other acute symptoms. Allergies: Coded Allergies: No Known Allergies (Unverified , 10/02/13) Patient History Past Medical History: see triage record Reviewed Nursing Documentation: PMH: Agreed; PSxH: Agreed Nursing Documentation-PM Past Medical History: No History, Except For Hx Diabetes: Yes Hx Cancer: No Hx Gastrointestinal Problems: Yes - gastritis Hx Neurological Problems: No Review of Systems All Other Systems: negative except mentioned in HPI Physical Exam Vital Signs Date Time Temp Pulse Resp B/P (MAP) Pulse Ox O2 Delivery O2 Flow Rate FiO2 11/17/17 12:40 98.4 78 16 114/76 98 Room Air 98.4 Sp02 EP Interpretation: reviewed, normal General Appearance: well appearing, no apparent distress, alert, GCS 15, non- toxic Head: normocephalic, atraumatic Eyes: bilateral eye normal inspection, bilateral eye PERRL ENT: hearing grossly normal, normal pharynx, no angioedema, normal voice, uvula midline, moist mucus membranes Neck: full range of motion Respiratory: lungs clear, normal breath sounds, no rhonchi, no respiratory distress, no accessory muscle use, no wheezing, speaking full sentences Cardiovascular #1: regular rate, rhythm, no edema Gastrointestinal: non tender, soft, no mass, non-distended, no guarding, no rebound Genitourinary: no CVA tenderness Musculoskeletal: back normal, digits/nails normal, gait/station normal, normal range of motion, non-tender, no calf tenderness, Kiersten's Sign negative Neurologic: alert, oriented x3, responsive, motor strength/tone normal, sensory intact Psychiatric: mood/affect normal Skin: no rash Medical Decision Making PA Attestation Dr. Miller is my supervising Physician whom patient management has been discussed with. Diagnostic Impression: Primary Impression: Upper respiratory infection ER Course Pt presents to ED c/o cough 1 day. DDX considered but are not limited to influenza, viral URI, pneumonia, strep throat, rhinitis, sinusitis, otitis media. No tachycardia, Homans sign negative,no chest pain or SOB, no hemoptysis, no recent periods of immobilization, no history of cancer, low suspicion for PE. VITAL SIGNS are WNL, patient is afebrile. ER COURSE: Lungs clear to auscultation, no wheezes, rhonci or rales. patient afebrile. Low suspicion for pneumonia, will not order CXR at this time. no tonsillar exudates, no pharyngeal erythema, history of cough, no fever, no stridor, uvula midline, low suspicion for peritonsillar abscess. Likely viral etiology of symptoms. Symptomatic treatment. drink plenty of fluids. Salt water gargles for sore throat. Followup with PCP for further treatment and/or referral as needed. DISCHARGE: -Rx given for Promethazine syrup for cough sx. At this time pt is stable for d/c to home. Patient is resting comfortably, in no acute distress, nontoxic appearing. Patient to take medications as instructed Will provide with patient care instructions and any necessary prescriptions. Care plan and follow-up instructions provided. Patient instructed to follow-up with primary care provider in 3 - 5 days. Patient questions asked and answered. Patient reports understanding and agreement to treatment plan. ER precautions given. Patient instructed to return to ER immediately for any new or worsening of symptoms including but not limited to increasing SOB, persistent fever, intractable vomiting. - Please note that this Emergency Department Report was dictated using [employer] attendant technology software, occasionally this can lead to erroneous entry secondary to interpretation by the dictation equipment. Last Vital Signs Date Time Temp Pulse Resp B/P (MAP) Pulse Ox O2 Delivery O2 Flow Rate FiO2 11/17/17 12:40 98.4 78 16 114/76 98 Room Air 98.4 Disposition: HOME, SELF-CARE Condition: Stable Scripts Promethazine Hcl (PROMETHAZINE HCL*) 6.25 Mg/5 Ml Syrup 5 ML ORAL Q8H, #120 ML 0 Refills Prov: Otoniel Mars 11/17/17 Patient Instructions: Upper Respiratory Infection, Adult Additional Instructions: Followup with primary care provider in 3 -5 days. Take medications as directed. Patient questions asked and answered. ER precautions given, patient instructed to return to ER immediately for any new or worsening of symptoms. Otoniel Mars Nov 17, 2017 12:47
[2017-11-17 12:49] VITALS: BP 114/76
[2017-11-17 13:05] VITALS: BP 114/76
== END 2017-11-17 13:05 | disposition home or self-care (01) ==
LOC: EMR 12:30
DX: J06.9 Acute upper respiratory infection, unspecified (principal); R05 Cough; F17.210 Nicotine dependence, cigarettes, uncomplicated; E11.9 Type 2 diabetes mellitus without complications
CPT/HCPCS: 99282

== ENCOUNTER 2017-12-21 15:51 | Emergency (ER) | payer MEDICAID ==
[~2017-12-21] VITALS: Ht 165.1 cm; Wt 83.9 kg
[~2017-12-21 15:51] MED LIST changes: +PROMETHAZI6.25 MG/1 ORAL
[2017-12-21] MEDS ORDERED: Phenazopyridine 200mg tab ORAL ONE (16:15)
[2017-12-21 16:32] VITALS: BP 124/79
[2017-12-21 16:35] LABS: APPEARANCE,URINE CLEAR; BILIRUBIN, URINE NEGATIVE (NEGATIVE); COLOR,URINE PALE YELLOW; GLUCOSE, URINE (UA) 2+ (NEGATIVE); KETONES,URINE NEGATIVE (NEGATIVE); LEUKOCYTE ESTERASE ,URINE NEGATIVE (NEGATIVE); NITRITE,URINE NEGATIVE (NEGATIVE); PH,URINE 5 (4.5-8.0); PROTEIN,URINE 1+ (NEGATIVE); UROBILINOGEN,URINE NORMAL MG/DL (0.0-1.0)
--- NOTE | 2017-12-21 16:58 | Emergency Room Report ---
History of Present Illness General Chief Complaint: Female Urogenital Problems Source: Patient, Medical Record Present Illness HPI 62-year-old female presents to the emergency department complaining of 10 out of 10 in severity itching and burning sensation especially with urination and genital area. Patient also reports nasal congestion and chest congestion times one week. Patient. Denies hematuria, fevers, chills, low back pain, rash, swollen tender lymph nodes or joint pain. pt. denies recent unprotected intercourse. Patient reports foul smelling milky / yellowish vaginal discharge 2 days. Patient states she has had a history of bacterial vaginosis in the past does required Diflucan with any antibiotic prescription. Patient like to be checked for UTI otherwise treated for her symptoms. PT. denies suspicion for STI. 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 Allergies: Coded Allergies: No Known Allergies (Unverified , 12/21/17) Patient History Past Medical History: see triage record Past Surgical History: none Pertinent Family History: none Now: No Immunizations: UTD Reviewed Nursing Documentation: PMH: Agreed; PSxH: Agreed Nursing Documentation-PMH Hx Diabetes: Yes Hx Cancer: No Hx Gastrointestinal Problems: Yes - gastritis Hx Neurological Problems: No Review of Systems All Other Systems: negative except mentioned in HPI Physical Exam Vital Signs Date Time Temp Pulse Resp B/P (MAP) Pulse Ox O2 Delivery O2 Flow Rate FiO2 12/21/17 15:59 98.2 86 16 122/73 94 Sp02 EP Interpretation: reviewed, normal General Appearance: no apparent distress, alert, GCS 15, non-toxic Head: normocephalic, atraumatic Eyes: bilateral eye normal inspection, bilateral eye PERRL ENT: hearing grossly normal, normal voice Neck: full range of motion Respiratory: chest non-tender, lungs clear, normal breath sounds, no respiratory distress, no wheezing, speaking full sentences Cardiovascular #1: regular rate, rhythm Gastrointestinal: non tender, soft Rectal: deferred Genitourinary: normal inspection, no CVA tenderness, deferred - by pt. Musculoskeletal: back normal, gait/station normal, normal range of motion, non- tender Neurologic: alert, oriented x3, responsive, motor strength/tone normal, sensory intact, speech normal, grossly normal Psychiatric: judgement/insight normal Skin: normal color, no rash, warm/dry, well hydrated Lymphatic: no adenopathy Medical Decision Making PA Attestation Dr. Cantrell is my supervising Physician whom patient management has been discussed with. Diagnostic Impression: Primary Impression: Vaginitis Qualified Codes: N76.0 - Acute vaginitis Additional Impression: Acute viral syndrome ER Course 62-year-old female presents to the emergency department complaining of 10 out of 10 in severity itching and burning sensation especially with urination and genital area. Patient also reports nasal congestion and chest congestion times one week. Patient. Denies hematuria, fevers, chills, low back pain, rash, swollen tender lymph nodes or joint pain. pt. denies recent unprotected intercourse. Patient reports foul smelling milky / yellowish vaginal discharge 2 days. Patient states she has had a history of bacterial vaginosis in the past does required Diflucan with any antibiotic prescription. Patient like to be checked for UTI otherwise treated for her symptoms. PT. denies suspicion for STI. 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 Ddx considered but are not limited to UTi , Pyelo, STI, Stone, Cystitis, vaginal laceration, vaginitis, URI, viral syndrome Vital signs: are WNL, pt. is afebrile H& PE are most consistent with: Vaginitis , and Viral syndrome with nasal and chest congestion - patient is nontoxic in appearance and in no acute distress. ORDERS: - UA labs are attached - Most indicative of contamination: presence of equal amounts of bacteria and squamous cells, no elevation in inflammatory markers, nitrite negative. d/w pt. that will be sent for culture and will contact her if additional abx are needed. Pt. declines Wet mount exam as she states she is positive that it is BV as it is consistent with symptoms she has had in the past. 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 ED INTERVENTIONS: -Pyridium PO DISCHARGE: At this time pt. is stable for d/c to home. Will provide printed patient care instructions, and any necessary prescriptions. Care plan and follow up instructions have been discussed with the patient prior to discharge. discussed with the patient prior to discharge. Labs Test 12/21/17 16:05 Urine Color Pale yellow Urine Appearance Clear Urine pH 5 (4.5-8.0) Urine Specific [place] 1.025 (1.005-1.035) Urine Protein 1+ (NEGATIVE) Urine Glucose (UA) 2+ (NEGATIVE) Urine Ketones Negative (NEGATIVE) Urine Blood Negative (NEGATIVE) Urine Nitrite Negative (NEGATIVE) Urine Bilirubin Negative (NEGATIVE) Urine Urobilinogen Normal MG/DL (0.0-1.0) Urine Leukocyte Esterase Negative (NEGATIVE) Urine RBC 0-2 /HPF (0 - 2) Urine WBC 0-2 /HPF (0 - 2) Urine Squamous Epithelial Cells Moderate /LPF (NONE/OCC) Urine Bacteria Few /HPF (NONE) Last Vital Signs Date Time Temp Pulse Resp B/P (MAP) Pulse Ox O2 Delivery O2 Flow Rate FiO2 12/21/17 16:32 98.2 87 16 124/79 98 Disposition: HOME, SELF-CARE Condition: Stable Scripts Phenazopyridine Hcl* (PYRIDIUM*) 200 Mg Tablet 200 MG ORAL THREE TIMES A DAY for 3 Days, #9 TAB 0 Refills Prov: Esther Marcum 12/21/17 Guaifenesin (Guaifenesin) 1,200 Mg Tab.er.12h 1200 MG PO Q12HR, #14 TAB Prov: Esther Marcum 12/21/17 Fluconazole (FLUCONAZOLE) 100 Mg Tablet 100 MG ORAL DAILY, #2 TAB 0 Refills Prov: Esther Marcum 12/21/17 Metronidazole* (FLAGYL*) 500 Mg Tablet 500 MG ORAL BID for 5 Days, #10 TAB 0 Refills Prov: Esther Marcum 12/21/17 Patient Instructions: Dysuria, Vaginitis Additional Instructions: Take medications as directed. ! Do not drink alcohol while taking Flagyl/Metronidazole as this will cause a skin reaction. Follow up with a Primary Care Provider in 3-5 days, even if your symptoms have resolved. Return sooner to ED if new symptoms occur, or current symptoms become worse. - Please note that this Emergency Department Report was dictated using [employer] assistant department head technology software, occasionally this can lead to erroneous entry secondary to interpretation by the dictation equipment. Esther Marcum Dec 21, 2017 16:58
[2017-12-21] MEDS ORDERED: GUAIFENESIN1200 MG PO (17:10)
[2017-12-21] MEDS ORDERED: FLUCONAZOLE100 MG ORAL (17:10)
[2017-12-21] MEDS ORDERED: METRONIDAZOLE500 MG ORAL (17:10)
[2017-12-21] MEDS ORDERED: PHENAZOPYRIDIN200 MG ORAL (17:10)
[2017-12-21 17:18] VITALS: BP 124/79
== END 2017-12-21 17:18 | disposition home or self-care (01) ==
LOC: EMR 16:51
DX: N76.0 Acute vaginitis (principal); B34.9 Viral infection, unspecified; E11.9 Type 2 diabetes mellitus without complications
CPT/HCPCS: 81003; 99283

== ENCOUNTER 2018-04-04 15:22 | Emergency (ER) | payer MEDICAID, OTHER ==
[~2018-04-04] VITALS: Ht 165.1 cm; Wt 87.1 kg
[~2018-04-04 15:22] MED LIST changes: +FLUCONAZOLE100 MG ORAL; +GUAIFENESIN1200 MG PO; +PHENAZOPYRIDIN200 MG ORAL
[2018-04-04 15:48] VITALS: BP 130/74
--- NOTE | 2018-04-04 15:49 | NUR ---
ED Nurse Note: Pt walked in to ER c/o Rt side of body pain /. per pt, she fell few days ago and since then the pain has not resolved. pt aao x4, skin clean and intact.
--- NOTE | 2018-04-04 16:00 | NUR ---
ED Nurse Note: pt was taken down to CT scan in stable condition by WC.
--- NOTE | 2018-04-04 16:40 | NUR ---
ED Nurse Note: pt came back from CT in stable condition.
--- NOTE | 2018-04-04 16:47 | Emergency Room Report ---
History of Present Illness General Chief Complaint: Pain Source: Patient (José Miguel Back) Present Illness HPI 62-year-old female with no significant past medical history here complaining of right hip pain, and right sided chest soreness after a fall 1 week ago. Patient has not been taking any medication for pain. Is rating the pain 5 out of 10, intermittent, without any radiation, denying any tingling or numbness. She reports that she feels something is clicking in her right hip. She is mobile and has no difficulty ambulating. Denies shortness of breath, chest pain , palpitation, abdominal pain, no other associated symptoms. Denies bladder or bowel incontinence, denies paresthesias (José Miguel Back) Allergies: Coded Allergies: No Known Allergies (Unverified , 12/21/17) Patient History Past Medical History: see triage record Past Surgical History: none Pertinent Family History: none Now: No Immunizations: UTD Reviewed Nursing Documentation: PMH: Agreed; PSxH: Agreed (José Miguel Back) Nursing Documentation-PMH Hx Diabetes: Yes Hx Cancer: No Hx Gastrointestinal Problems: Yes - gastritis Hx Neurological Problems: No (José Miguel Back) Review of Systems All Other Systems: negative except mentioned in HPI (José Miguel Back) Physical Exam Vital Signs Date Time Temp Pulse Resp B/P (MAP) Pulse Ox O2 Delivery O2 Flow Rate FiO2 04/04/18 15:28 98.2 81 19 130/74 100 Room Air Sp02 EP Interpretation: reviewed, normal General Appearance: normal inspection, well appearing, no apparent distress, alert, GCS 15 Head: normocephalic, atraumatic Eyes: bilateral eye normal inspection, bilateral eye PERRL ENT: normal ENT inspection, hearing grossly normal, normal pharynx Neck: normal inspection, full range of motion, supple Respiratory: normal inspection, chest non-tender, lungs clear, no rhonchi, no wheezing, other - ribs are nontender to palpation and no crepitus is noted, no hyperresonance is not Cardiovascular #1: normal inspection, normal peripheral pulses, regular rate, rhythm, no edema, no gallop, no murmur Gastrointestinal: normal inspection, normal bowel sounds, non tender, soft, no mass Genitourinary: no CVA tenderness Musculoskeletal: digits/nails normal, gait/station normal, non-tender, pelvis stable, other - No crepitus of her ribs, no tenderness to palpation of the hip Neurologic: normal inspection, alert, oriented x3, responsive, zyglo inspector III-XII nml as tested Psychiatric: normal inspection, judgement/insight normal, memory normal Skin: normal inspection, normal color, no rash, warm/dry Lymphatic: normal inspection, no adenopathy (José Miguel Back) Medical Decision Making PA Attestation All diagnosis and treatment plans are reviewed and discussed with my supervising physician (José Miguel Back) Diagnostic Impression: Primary Impression: Hip strain Additional Impression: Chest wall contusion ER Course 62-year-old female with no significant past medical history here complaining of right hip pain, and right sided chest soreness after a fall 1 week ago. Patient has not been taking any medication for pain. Is rating the pain 5 out of 10, intermittent, without any radiation, denying any tingling or numbness. She reports that she feels something is clicking in her right hip. She is mobile and has no difficulty ambulating. Denies shortness of breath, chest pain , palpitation, abdominal pain, no other associated symptoms. Denies bladder or bowel incontinence, denies paresthesias Ddx considered but are not limited to hip fracture, hip contusion, hip strain, chest wall contusion, rib fracture Vital signs: are WNL, pt. is afebrile H&PE are most consistent with hip strain, chest wall contusion ORDERS:right hip CT scan noncontrast, chest x-ray, right rib series, naproxen ED INTERVENTIONS: None required at this time. DISCHARGE: At this time pt. is stable for d/c to home. Will provide printed patient care instructions, and any necessary prescriptions. Care plan and follow up instructions have been discussed with the patient prior to discharge. patient left without resultsbeing discussed with her, (José Miguel Back) Chest X-Ray Diagnostic Results Chest X-Ray Diagnostic Results : Chest X-Ray Ordered: Yes # of Views/Limited/Complete: 1 View Indication: Other - chest contusion EP Interpretation: Yes PA Xray: Interpretation reviewed, by supervising MD, and agrees with findings. Interpretation: no consolidation, no effusion, no pneumothorax, no acute cardiopulmonary disease Impression: No acute disease Electronically Signed by: josé miguel Frank PA-C (José Miguel Back) Chest X-Ray Diagnostic Results : Electronically Signed by: Junior Alfaro documentation of Xray reviewed by me and is accurate, Aman Cantrell MD (Aman Cantrell MD) Other X-Ray Diagnostic Results Other X-Ray Diagnostic Results : X-Ray ordered: right rib series # of Views/Limited Vs Complete: 2 View Indication: Pain EP Interpretation: Yes PA Xray: Interpretation reviewed, by supervising MD, and agrees with findings. Interpretation: no dislocation, no soft tissue swelling, no fractures Impression: No acute disease Electronically Signed by: josé miguel frank PA-C (José Miguel Back) Other X-Ray Diagnostic Results : Electronically Signed by: Junior Alafro documentation of Xray reviewed by me and is accurate, Aman Cantrell MD (Aman Cantrell MD) CT/MRI/US Diagnostic Results CT/MRI/US Diagnostic Results : Imaging Test Ordered: right hip CT Impression CT RIGHT HIP Without Contrast: No visible fracture or dislocation. Mild degenerative changes in bilateral hip joints and SI joints and the lumbosacral junction. (José Miguel Back) Last Vital Signs Date Time Temp Pulse Resp B/P (MAP) Pulse Ox O2 Delivery O2 Flow Rate FiO2 04/04/18 15:48 98.2 77 19 130/74 100 Room Air (José Miguel Back) Disposition: HOME, SELF-CARE Condition: Stable Scripts Naproxen* (NAPROXEN*) 500 Mg Tablet 500 MG ORAL TWICE A DAY, #30 TAB Prov: José Miguel Back 04/04/18 Referrals: NON PHYSICIAN (PCP) Patient Instructions: Chest Contusion, [id number], Hip Pain Additional Instructions: take medication as directed, avoid strenuous physical activity, alternating between icing and heating, the onset of symptoms definitely follow up with your primary care provider José Miguel Back Apr 04, 2018 16:47 Aman Cantrell MD Apr 05, 2018 02:58
[2018-04-04] MEDS ORDERED: NAPROXEN500 M2 ORAL (17:20)
[2018-04-04 17:30] VITALS: BP 130/74
--- NOTE | 2018-04-04 17:30 | NUR ---
ER DISCHARGE NOTE: Patient is cleared to be discharged per ERMD, pt is aox4, on room air, with stable vital signs. pt was given dc and prescription instructions, pt was able to verbalize understanding, pt id band removed. pt is able to ambulate with steady gait. pt took all belongings.
--- NOTE | 2018-04-05 10:46 | Diagnostic Imaging Report ---
Indication: Right hip pain and trauma Technique: continuous helical imaging in the transaxial plane was performed from the iliac crests to the pubic symphysis with attention to the right hip. Coronal 2-D reformatted images were also generated. Study obtained in a Siem[employer] Sensation [address] total DLP: 493 mGycm CTD/vol: 0.25, 0.25, 14.38 mGy Comparison: None Findings: There is no evidence of an acute fracture or significant malalignment identified on this examination. Vacuum phenomena hypertrophy noted within the lower lumbar facets both sacroiliac joints. Narrowing and osteophytes involving both hip joints also demonstrated. The appendix is seen and normal. Uterus noted. No free fluid demonstrated within the pelvis. IMPRESSION: No acute injury appreciated. No acute hip fracture. Other incidental findings as above [facility] has communicated the preliminary results to the Emergency Department. Their findings are largely concordant with this report. The CT scanner at [facility] is accredited by the [employer] and the scans are performed using dose optimization techniques as appropriate to a performed exam including Automatic Exposure control.
--- NOTE | 2018-04-05 12:15 | Diagnostic Imaging Report ---
Indication: Trauma. Comparison: None Findings: 4 views of the right chest wall was obtained for evaluation of the ribs. Bony mineralization appears normal. There is no acute fracture identified. There is no soft tissue swelling demonstrated. The lung is essentially clear. The costophrenic angle is sharp. Other osseous structures visualized are unremarkable. Impression: Negative unilateral rib series
--- NOTE | 2018-04-05 12:15 | Diagnostic Imaging Report ---
Indication: Dyspnea Comparison: 05/13/2017 A single view chest radiograph was obtained. Findings: Cardiomediastinal appearance is within normal limits for age. The lungs are clear. Pulmonary vascularity is appropriate. The diaphragmatic contour is smooth and costophrenic angles are sharp. No pleural effusions are identified. The bones are osteopenic. Impression: No acute findings
== END 2018-04-04 17:30 | disposition home or self-care (01) ==
LOC: EMR 16:04
DX: S76.011A Strain of muscle, fascia and tendon of right hip, initial encounter (principal); S20.219A Contusion of unspecified front wall of thorax, initial encounter; W19.XXXA Unspecified fall, initial encounter; Y92.9 Unspecified place or not applicable; E11.9 Type 2 diabetes mellitus without complications
CPT/HCPCS: 71045; 99284

== ENCOUNTER 2018-07-16 12:56 | Emergency (ER) | payer MEDICAID ==
[~2018-07-16] VITALS: Ht 165.1 cm; Wt 88.5 kg
[~2018-07-16 12:56] MED LIST changes: +NAPROXEN500 M2 ORAL
[2018-07-16 13:16] VITALS: BP 97/58
--- NOTE | 2018-07-16 13:17 | NUR ---
ED Nurse Note: pt walked in due to rash, skin redness and swelling on bilateral legs, pt stated that it came from a spider bite. complains of 10/10 pain. pt able to talk. aox4. not in acute distress. will continue to monitor.
--- NOTE | 2018-07-16 14:06 | Emergency Room Report ---
History of Present Illness General Chief Complaint: Skin Rash/Abscess Source: Medical Record Present Illness HPI 62 YO Female presents to the ED c/o 06/18 in severity burning, Itching, swelling , and erythema of discrete insect bites of the bilateral LE's. Pt. denies fevers, chills or swollen tender lymph nodes. Denies lesions/rashes elsewhere on the body. Denies new medications or body washes or creams. Denies swelling of the lips, tongue , throat or airway. Denies wheezing, or shortness of breath. Denies recent travel, recent illness or ill contacts. denies blisters , oral lesions, or sloughing of the skin. pt. reports hx of DM. Denies claudication. Allergies: Coded Allergies: No Known Allergies (Unverified , 12/21/17) Patient History Past Medical History: see triage record, DM Past Surgical History: none Pertinent Family History: none Now: No Reviewed Nursing Documentation: PMH: Agreed; PSxH: Agreed Nursing Documentation-PMH Past Medical History: No History, Except For Hx Diabetes: Yes Hx Cancer: No Hx Gastrointestinal Problems: Yes - gastritis Hx Neurological Problems: No Review of Systems All Other Systems: negative except mentioned in HPI Physical Exam Vital Signs Date Time Temp Pulse Resp B/P (MAP) Pulse Ox O2 Delivery O2 Flow Rate FiO2 07/16/18 13:00 98.1 89 16 97/58 (71) 97 Room Air Sp02 EP Interpretation: reviewed, normal General Appearance: no apparent distress, alert, GCS 15, non-toxic Head: normocephalic, atraumatic Eyes: bilateral eye normal inspection, bilateral eye PERRL ENT: hearing grossly normal, no angioedema, normal voice Neck: full range of motion, other - no stridor Respiratory: lungs clear, normal breath sounds, no wheezing, speaking full sentences Cardiovascular #1: regular rate, rhythm Musculoskeletal: back normal, gait/station normal, normal range of motion Neurologic: alert, oriented x3, responsive, motor strength/tone normal, sensory intact, normal gait, speech normal, grossly normal Psychiatric: judgement/insight normal Skin: normal color, warm/dry, well hydrated, other - multiple discrete insect bites on the LE's bilaterally with secondary cellulitis (surrounding erythema and swelling) erythema is discrete and not diffuse or circumerential. No blisters or vesicles. Medical Decision Making PA Attestation Dr. Cary is my supervising Physician whom patient management has been discussed with. Diagnostic Impression: Primary Impression: Cellulitis Qualified Codes: L03.115 - Cellulitis of right lower limb Additional Impression: Insect bites of multiple sites, infected ER Course 62 YO Female presents to the ED c/o 5/10 in severity burning, Itching, swelling , and erythema of discrete insect bites of the bilateral LE's. Pt. denies fevers, chills or swollen tender lymph nodes. Denies lesions/rashes elsewhere on the body. Denies new medications or body washes or creams. Denies swelling of the lips, tongue , throat or airway. Denies wheezing, or shortness of breath. Denies recent travel, recent illness or ill contacts. denies blisters , oral lesions, or sloughing of the skin. pt. reports hx of DM. Denies claudication. Ddx considered but are not limited to cellulitis, scabies, insect bites, tic bites, spider bites, contact dermatitis, Drug reaction, allergic reaction, fungal infection, lice. Vital signs: are WNL, pt. is afebrile H&PE are most consistent with multiple discrete insect bites on the LE's bilaterally with secondary cellulitis. ORDERS: none required at this time, the diagnosis is clinical ED INTERVENTIONS: None required at this time. DISCHARGE: At this time pt. is stable for d/c to home. Will provide printed patient care instructions, and any necessary prescriptions. Care plan and follow up instructions have been discussed with the patient prior to discharge. Last Vital Signs Date Time Temp Pulse Resp B/P (MAP) Pulse Ox O2 Delivery O2 Flow Rate FiO2 07/16/18 13:16 98.1 89 16 97/58 97 Room Air Status: improved Disposition: HOME, SELF-CARE Condition: Stable Scripts Hydrocortisone 2% Cream (ANTI-ITCH 2% CREAM) Y Cr 1 APPLIC TP Q6HR, #28 GM Prov: Esther Marcum 07/16/18 Trimethoprim/Sulfamethoxazole 160/800* (BACTRIM DS TABLET*) 1 Each Tablet 1 TAB ORAL TWICE A DAY for 7 Days, #14 TAB Prov: Esther Marcum 07/16/18 Cephalexin* (KEFLEX*) 500 Mg Capsule 500 MG ORAL EVERY 12 HOURS for 7 Days, #14 CAP 0 Refills Prov: Esther Marcum 07/16/18 Referrals: NON PHYSICIAN (PCP) Patient Instructions: Cellulitis, [id number], Insect Bite, [id number] Additional Instructions: Take medications as directed. Follow up with a Primary Care Provider in 3-5 days, even if your symptoms have resolved. --Please review list of primary care clinics, if you do not already have a primary care provider Return sooner to ED if new symptoms occur, or current symptoms become worse. - Please note that this Emergency Department Report was dictated using [employer] medicine specialist technology software, occasionally this can lead to erroneous entry secondary to interpretation by the dictation equipment. Esther Marcum Jul 16, 2018 14:06
[2018-07-16] MEDS ORDERED: BACTRIM DS TAB1 EAC1 ORAL (14:07)
[2018-07-16] MEDS ORDERED: ANTI-ITCH28 G1 TP (14:07)
[2018-07-16] MEDS ORDERED: CEPHALEXIN500 MG ORAL (14:07)
--- NOTE | 2018-07-16 14:25 | NUR ---
ED Nurse Note: pt cleared to be d/c per ER provider, pt discharge and aftercare instruction provided w/ prescription, pt education done via discussion and handout, pt advised to follow up with pcp/hydraulic tester or return to ed if changes in condition, pt verbalized understanding and agrees with plan, vss, ambulatory w/ steady gait, left w/ all belongings.
[2018-07-16 14:26] VITALS: BP 108/57
== END 2018-07-16 14:27 | disposition home or self-care (01) ==
LOC: EMR 13:44
DX: L03.116 Cellulitis of left lower limb (principal); L03.115 Cellulitis of right lower limb; S80.862A Insect bite (nonvenomous), left lower leg, initial encounter; S80.861A Insect bite (nonvenomous), right lower leg, initial encounter; W57.XXXA Bitten or stung by nonvenomous insect and other nonvenomous arthropods, initial encounter; Y92.9 Unspecified place or not applicable; E11.9 Type 2 diabetes mellitus without complications
CPT/HCPCS: 99283

== ENCOUNTER 2018-07-26 12:02 | Emergency (ER) | payer MEDICAID ==
[~2018-07-26] VITALS: Ht 165.1 cm; Wt 89.8 kg
[~2018-07-26 12:02] MED LIST changes: +ANTI-ITCH28 G1 TP; +BACTRIM DS TAB1 EAC1 ORAL
--- NOTE | 2018-07-26 12:10 | NUR ---
ED Nurse Note: PT WALKED IN TO ER TODAY FROM HOME. AOX4. PT C/O BURNING SENSATION OF BILATERAL EYES X 2 DAYS AGO. PT STATES SHE WAS BICYCLING WHEN LIQUID FROM A SPRINKLER WENT IN TO BOTH EYES. PT DENIES ANY CHANGES IN VISION OR DISCHARGE. ON ASSESSMENT, BOTH EYES APPEAR RED BUT NO SWELLING NOTED.
[2018-07-26] MEDS ORDERED: Fluorescein Strips ONE (12:23)
[2018-07-26] MEDS ORDERED: Tetracaine 0.5% Opth 4ml Soln ONE (12:24)
[2018-07-26 12:28] VITALS: BP 116/72
[2018-07-26] MEDS ORDERED: Fluorescein Strips BOTH EYES ONE (12:30)
[2018-07-26] MEDS ORDERED: Tetracaine 0.5% Opth 4ml Soln LEFT EYE ONE (12:30)
[2018-07-26] MEDS ORDERED: Tetracaine 0.5% Opth 4ml Soln RIGHT EYE ONE (12:30)
--- NOTE | 2018-07-26 12:38 | Emergency Room Report ---
History of Present Illness General Chief Complaint: Eye Problems Source: Patient Present Illness HPI 62-year-old female with no significant past medical history here complaining of bilateral eye pain and burning after exposure to water sprinklers 3 days ago. Patient was riding her bike as she was passing by the lawn and reports that her neighbor was watering the lawn with possible pesticides added to the water sprinkled. Also complains of throat irritation. Denies blurry vision, discharge from the eyes, leading from the eyes, cough, congestion, shortness of breath, chest pain. Patient did not wash her eyes after. Reports that she spends hours to monitor every day. Patient is rating her pain 3 out of 10 without radiation has not taken any medication for pain. Denies photophobia Allergies: Coded Allergies: No Known Allergies (Unverified , 12/21/17) Patient History Past Medical History: see triage record Past Surgical History: unable to obtain Pertinent Family History: none Now: No Immunizations: UTD Reviewed Nursing Documentation: PMH: Agreed; PSxH: Agreed Nursing Documentation-PMH Past Medical History: No History, Except For Hx Diabetes: Yes Hx Cancer: No Hx Gastrointestinal Problems: Yes - gastritis Hx Neurological Problems: No Review of Systems All Other Systems: negative except mentioned in HPI Physical Exam Vital Signs Date Time Temp Pulse Resp B/P (MAP) Pulse Ox O2 Delivery O2 Flow Rate FiO2 07/26/18 12:06 97.9 84 17 113/68 (83) 99 Room Air Sp02 EP Interpretation: reviewed, normal General Appearance: normal inspection, well appearing, no apparent distress Head: normocephalic, atraumatic Eyes: bilateral eye PERRL, bilateral eye Scleral Injection, bilateral eye other - corneal abrasion ENT: normal ENT inspection, hearing grossly normal, normal pharynx, no angioedema Neck: normal inspection, full range of motion, supple, thyroid normal Respiratory: normal inspection, normal breath sounds, no rhonchi, no wheezing Cardiovascular #1: normal inspection, regular rate, rhythm, no edema, normal capillary refill Gastrointestinal: normal inspection, non tender, soft Genitourinary: no CVA tenderness Musculoskeletal: normal inspection, back normal, digits/nails normal Neurologic: normal inspection, alert, oriented x3, responsive Psychiatric: normal inspection, judgement/insight normal, memory normal Skin: normal inspection, normal color, no rash, warm/dry Lymphatic: normal inspection, no adenopathy Medical Decision Making PA Attestation All my diagnosis and treatment plans were reviewed ad discussed with my supervising physician Dr. Sharp Diagnostic Impression: Primary Impression: Corneal abrasion of both eyes ER Course 62-year-old female with no significant past medical history here complaining of bilateral eye pain and burning after exposure to water sprinklers 3 days ago. Patient was riding her bike as she was passing by the lawn and reports that her neighbor was watering the lawn with possible pesticides added to the water sprinkled. Also complains of throat irritation. Denies blurry vision, discharge from the eyes, leading from the eyes, cough, congestion, shortness of breath, chest pain. Patient did not wash her eyes after. Reports that she spends hours to monitor every day. Patient is rating her pain 3 out of 10 without radiation has not taken any medication for pain. Denies photophobia Ddx considered but are not limited to: bacterial conjunctivitis, allergic conjunctivitis, viral conjunctivitis, periorbital cellulitis, global trauma , corneal abrasion Vital signs: are WNL, pt. is afebrile H&PE are most consistent with: corneal abrasion ORDERS: Ofloxacin ED INTERVENTIONS: None required at this time. DISCHARGE: At this time pt. is stable for d/c to home. Will provide printed patient care instructions, and any necessary prescriptions. Care plan and follow up instructions have been discussed with the patient prior to discharge. Last Vital Signs Date Time Temp Pulse Resp B/P (MAP) Pulse Ox O2 Delivery O2 Flow Rate FiO2 07/26/18 12:28 98.0 82 16 116/72 100 Room Air Disposition: HOME, SELF-CARE Condition: Stable Scripts Ibuprofen* (MOTRIN*) 600 Mg Tablet 600 MG ORAL Q8H PRN for For Pain, #30 TAB 0 Refills Prov: José Miguel Back 07/26/18 Ofloxacin (Ofloxacin) 5 Ml Drops 2 DROP OP Q4HR for 7 Days, #10 ML Prov: José Miguel Back 07/26/18 Patient Instructions: Corneal Abrasion, [id number] Additional Instructions: Wear protective sunglasses for 1 week, after exposure to monitor every 30 minutes close your eyes and take a 5-minute break. Follow-up with your primary care provider for referral to ophthalmology as needs field research assistant evaluation , avoid eye make-up for 2 weeks José Miguel Back Jul 26, 2018 12:38
[2018-07-26] MEDS ORDERED: OFLOXACIN10 ML OP (12:41)
[2018-07-26] MEDS ORDERED: IBUPROFEN600 MG ORAL (12:41)
--- NOTE | 2018-07-26 12:44 | NUR ---
ED Nurse Note: PT LAYING PEACEFULLY IN BED IN NAD. AOX4. PRESCRIPTIONS AND DISCHARGE PAPERWORK EXPLAINED TO PT. PT VERBALIZES UNDERSTANDING AND ALL QUESTIONS ANSWERED. PRESCRIPTIONS AND DISCHARGE PAPERWORK GIVEN TO PT AND ID WRISTBAND REMOVED. PT WALKED OUT OF ER WITH STEADY GAIT AND ALL BELONGINGS.
== END 2018-07-26 12:43 | disposition home or self-care (01) ==
LOC: EMR 12:30
DX: S05.02XA Injury of conjunctiva and corneal abrasion without foreign body, left eye, initial encounter (principal); S05.01XA Injury of conjunctiva and corneal abrasion without foreign body, right eye, initial encounter; X58.XXXA Exposure to other specified factors, initial encounter; Y93.9 Activity, unspecified; Y92.9 Unspecified place or not applicable; E11.9 Type 2 diabetes mellitus without complications
CPT/HCPCS: 99282

== ENCOUNTER 2018-09-26 14:14 | Emergency (ER) | payer MEDICAID ==
[~2018-09-26] VITALS: Ht 165.1 cm; Wt 86.2 kg
[~2018-09-26 14:14] MED LIST changes: +CEPHALEXIN500 M1 ORAL; +OFLOXACIN10 ML OP
[2018-09-26 14:26] VITALS: BP 131/74
--- NOTE | 2018-09-26 14:27 | NUR ---
ED Nurse Note: pt walked in to ER c/o Lt side of body pain without any trauma which started on Thursday. pt aao x4 and ambulatory. pt is eating and drinking her own food. skin clean and intact. calm and cooperative. pt reported her pain level 10/10. no aucte distress noted at this time.
[2018-09-26] MEDS ORDERED: LIDODERM700 M1 TOPIC (14:50)
[2018-09-26] MEDS ORDERED: GABAPENTIN100 MG ORAL (14:50)
[2018-09-26 15:01] VITALS: BP 131/74
--- NOTE | 2018-09-26 15:01 | NUR ---
ER DISCHARGE NOTE: Patient is cleared to be discharged per ERMD, pt is aox4, on room air, with stable vital signs. pt was given dc and prescription instructions, pt was able to verbalize understanding, pt id band removed without complications. pt is able to ambulate with steady gait. pt took all belongings.
--- NOTE | 2018-09-26 19:05 | Emergency Room Report ---
History of Present Illness General Chief Complaint: Pain Source: Patient Present Illness HPI 62 yo F presents ED for evaluation. Complaining of pain to the left side of her body for the last 10 days. Tingling, sharp, 7 out of 10, radiating from her lower back down her leg. Denies any fall or injury. Denies any bowel or bladder incontinence. Denies any leg or motor weakness. Notes history of diabetes. States that she has been diagnosed with neuropathy in the past. Has taken gabapentin previously. States she is compliant with her medications. No other aggravating relieving factors. Denies any other associated symptoms Allergies: Coded Allergies: No Known Allergies (Unverified , 12/21/17) Patient History Past Medical History: DM, GERD Pertinent Family History: none Social History: Denies: smoking, alcohol use, drug use Last Menstrual Period: no period Now: No Immunizations: UTD Reviewed Nursing Documentation: PMH: Agreed; PSxH: Agreed Nursing Documentation-PMH Hx Diabetes: Yes - type 2 Hx Cancer: No Hx Gastrointestinal Problems: Yes - gastritis Hx Neurological Problems: No Review of Systems All Other Systems: negative except mentioned in HPI Physical Exam Vital Signs Date Time Temp Pulse Resp B/P (MAP) Pulse Ox O2 Delivery O2 Flow Rate FiO2 09/26/18 14:17 98.2 80 17 131/74 (93) 98 Room Air Sp02 EP Interpretation: reviewed, normal General Appearance: no apparent distress, alert, GCS 15, non-toxic Head: normocephalic, atraumatic Eyes: bilateral eye normal inspection, bilateral eye PERRL ENT: hearing grossly normal, normal pharynx, no angioedema, normal voice Neck: full range of motion, supple/symm/no masses Respiratory: chest non-tender, lungs clear, normal breath sounds, speaking full sentences Cardiovascular #1: regular rate, rhythm, no edema Cardiovascular #2: 2+ carotid (R), 2+ carotid (L), 2+ radial (R), 2+ radial (L) , 2+ dorsalis pedis (R), 2+ dorsalis pedis (L) Gastrointestinal: normal bowel sounds, non tender, soft, non-distended, no guarding, no rebound Rectal: deferred Genitourinary: normal inspection, no CVA tenderness Musculoskeletal: gait/station normal, normal range of motion, swelling - paraspinal lumbar tenderness Neurologic: alert, oriented x3, responsive, motor strength/tone normal, sensory intact, speech normal Psychiatric: judgement/insight normal, memory normal, mood/affect normal, no suicidal/homicidal ideation Reflexes: 3+ bicep (R), 3+ bicep (L), 3+ tricep (R), 3+ tricep (L), 3+ knee (R) , 3+ knee (L) Skin: no rash Lymphatic: no adenopathy Medical Decision Making Diagnostic Impression: Primary Impression: Neuropathy Additional Impression: Muscle strain ER Course Hospital Course 62 yo F presents to ED c/o tingling pain down L leg Differential diagnoses include: sciatica, muscle cramps, neuropathy Clinical course Patient placed on stretcher. After initial history, exam reveals middle-aged female no acute distress. There is sensation of tingling and pain to the lateral aspect of the leg. 5 out of 5 motor strength bilaterally. No sensory deficit. Negative straight leg raise. Some paraspinal tenderness. Accu-Chek in the 200s. Consideration for neuropathy versus sciatica. No indication for imaging at this time. Discussed findings with patient. Will discharge home with short course of gabapentin. Safe for discharge for close outpatient follow-up. States she has a PMD Diagnosis - neuropathy, muscle strain Stable and discharged to home. Followup with PMD. Return to ED if symptoms recur or worsen Last Vital Signs Date Time Temp Pulse Resp B/P (MAP) Pulse Ox O2 Delivery O2 Flow Rate FiO2 09/26/18 15:01 98.2 80 17 131/74 98 Room Air Status: improved Disposition: HOME, SELF-CARE Condition: Stable Scripts Lidocaine Patch* (Lidoderm Patch*) 1 Each Adh..patch 1 PATCH TOPIC DAILY, #7 PATCH 0 Refills Patch(es) may remain in place for up to 12 hours in any 24-hour period. Prov: Wayne Waldrop MD 09/26/18 Gabapentin* (GABAPENTIN*) 100 Mg Capsule 100 MG ORAL THREE TIMES A DAY for 5 Days, CAP Prov: Wayne Waldrop MD 09/26/18 Referrals: [facility],REFERRING (PCP) Patient Instructions: Sciatica With Rehab-SportsMed, Neuropathic Pain Wayne Waldrop MD Sep 26, 2018 19:05
== END 2018-09-26 15:01 | disposition home or self-care (01) ==
LOC: EMR 15:01
DX: E11.42 Type 2 diabetes mellitus with diabetic polyneuropathy (principal); K21.9 Gastro-esophageal reflux disease without esophagitis; T14.8XXA Other injury of unspecified body region, initial encounter; X58.XXXA Exposure to other specified factors, initial encounter; Y92.9 Unspecified place or not applicable
CPT/HCPCS: 99282

== ENCOUNTER 2018-12-30 11:19 | Emergency (ER) | payer MEDICAID ==
[~2018-12-30] VITALS: Ht 165.1 cm; Wt 86.2 kg
[~2018-12-30 11:19] MED LIST changes: +LIDODERM700 M1 TOPIC
[2018-12-30 11:31] VITALS: BP 133/78
--- NOTE | 2018-12-30 11:40 | NUR ---
ED Nurse Note: patient walked into ED from home c/o vaginal discharge, foul odor for 1 month. patient also reports right arm pain for 1 week. patient denies any injury. patient is alert awake x4 ambulatory steady gait, breathing unlabored and even, speaking in full sentences.
[2018-12-30] MEDS ORDERED: Lidocaine 1% MPF 10mg/ml 5ml INJ ONE (12:30)
[2018-12-30] MEDS ORDERED: Azithromycin 250mg tab ORAL ONE (12:30)
--- NOTE | 2018-12-30 12:37 | Emergency Room Report ---
History of Present Illness General Chief Complaint: Vaginal Source: Patient Present Illness HPI 63-year-old female presents to the emergency department with 2 complaints 1 of being vaginal discharge with foul odor x5 days acute onset 2 days after having unprotected intercourse with a new partner. Patient states she wants to be treated for STDs and was possible BV. Patient denies itching, genital lesions, fevers, chills, pelvic pain, swollen tender lymph nodes or joint pain. Patient denies rashes. Patient also is complaining of 6 out of 10 severity right arm pain in the shoulder and elbow she reports she has arthritis which gets aggravated during the cold weather. Patient denies trauma or fall she denies paresthesias she denies loss of gross motor movements. Patient denies any aggravating or relieving factors she states she is not taking any medications for any of her symptoms. Patient denies recent antibiotic use. Allergies: Coded Allergies: No Known Allergies (Unverified , 12/21/17) Patient History Past Medical History: see triage record Past Surgical History: none Pertinent Family History: none Now: No Reviewed Nursing Documentation: PMH: Agreed; PSxH: Agreed Nursing Documentation-PMH Past Medical History: No History, Except For Hx Diabetes: Yes - type 2 Hx Cancer: No Hx Gastrointestinal Problems: Yes - gastritis Hx Neurological Problems: No Review of Systems All Other Systems: negative except mentioned in HPI Physical Exam Vital Signs Date Time Temp Pulse Resp B/P (MAP) Pulse Ox O2 Delivery O2 Flow Rate FiO2 12/30/18 11:31 98.2 71 19 133/78 (96) 98 Room Air Sp02 EP Interpretation: reviewed, normal General Appearance: no apparent distress, alert, GCS 15, non-toxic Head: normocephalic, atraumatic Eyes: bilateral eye normal inspection, bilateral eye PERRL ENT: hearing grossly normal, normal voice Neck: full range of motion Respiratory: lungs clear, normal breath sounds, speaking full sentences Cardiovascular #1: regular rate, rhythm Gastrointestinal: non tender, soft Genitourinary: normal inspection, no CVA tenderness Musculoskeletal: gait/station normal, normal range of motion, non-tender Neurologic: alert, oriented x3, responsive, motor strength/tone normal, sensory intact, speech normal, grossly normal Psychiatric: judgement/insight normal Skin: no rash Lymphatic: no adenopathy Medical Decision Making PA Attestation Dr. Landrum is my supervising Physician whom patient management has been discussed with. Diagnostic Impression: Primary Impression: Vaginal discharge Additional Impression: Arm pain, right ER Course 63-year-old female presents to the emergency department with 2 complaints 1 of being vaginal discharge with foul odor x5 days acute onset 2 days after having unprotected intercourse with a new partner. Patient states she wants to be treated for STDs and was possible BV. Patient denies itching, genital lesions, fevers, chills, pelvic pain, swollen tender lymph nodes or joint pain. Patient denies rashes. Patient also is complaining of 6 out of 10 severity right arm pain in the shoulder and elbow she reports she has arthritis which gets aggravated during the cold weather. Patient denies trauma or fall she denies paresthesias she denies loss of gross motor movements. Patient denies any aggravating or relieving factors she states she is not taking any medications for any of her symptoms. Patient denies recent antibiotic use. Ddx considered but are not limited to UTi , Pyelo, STI, Stone, Cystitis, vaginal laceration, vaginitis, arthritis, nerve impingement, musculoskeletal injury just name a few Vital signs: are WNL, pt. is afebrile H& PE are most consistent with: Vaginitis -=-with contact with/exposure to possible STDs. Patient of arthritis. ORDERS: - None required at this time. Dx. is made clinically in collaboration with the patient ED INTERVENTIONS: -Rocephin 250iu IM - Azithromycin 1g PO -Tramadol PO. DISCHARGE: At this time pt. is stable for d/c to home. Will provide printed patient care instructions, and any necessary prescriptions. Care plan and follow up instructions have been discussed with the patient prior to discharge. discussed with the patient prior to discharge. Last Vital Signs Date Time Temp Pulse Resp B/P (MAP) Pulse Ox O2 Delivery O2 Flow Rate FiO2 12/30/18 11:31 98.2 71 19 133/78 98 Room Air Disposition: HOME, SELF-CARE Condition: Stable Referrals: NON PHYSICIAN (PCP) Patient Instructions: Arthritis, [id number], Bacterial Vaginosis, Easy-to- Read Additional Instructions: Take medications as directed. ! Do not drink alcohol while taking Flagyl/Metronidazole as this will cause an irritated skin reaction. Follow up with a Primary Care Provider in 3-5 days, even if your symptoms have resolved. --Please review list of primary care clinics, if you do not already have a primary care provider Return sooner to ED if new symptoms occur, or current symptoms become worse. - Please note that this Emergency Department Report was dictated using [employer] cutting machine operator technology software, occasionally this can lead to erroneous entry secondary to interpretation by the dictation equipment. Esther Marcum Dec 30, 2018 12:37
[2018-12-30] MEDS ORDERED: METRONIDAZOLE500 MG ORAL (12:40)
[2018-12-30] MEDS ORDERED: IBUPROFEN600 MG ORAL (12:41)
[2018-12-30] MEDS ORDERED: traMADol 50mg tab ORAL ONE (12:45)
[2018-12-30 13:14] VITALS: BP 133/78
--- NOTE | 2018-12-30 13:14 | NUR ---
ER DISCHARGE NOTE: Patient is cleared to be discharged per KELSI BURCIAGA pt is aox4, on room air, with stable vital signs. pt was given dc and prescription instructions, pt was able to verbalize understanding, pt id band removed without complications. pt is able to ambulate with steady gait. pt took all belongings.
== END 2018-12-30 13:13 | disposition home or self-care (01) ==
LOC: EMR 12:30
DX: N89.8 Other specified noninflammatory disorders of vagina (principal); M25.511 Pain in right shoulder; M25.521 Pain in right elbow; E11.9 Type 2 diabetes mellitus without complications; K29.70 Gastritis, unspecified, without bleeding
CPT/HCPCS: 96372; 96374; J0696; Q0144; Z7502; 99284

== ENCOUNTER 2019-08-16 16:36 | Inpatient (IN) | payer MEDICAID ==
[~2019-08-16] VITALS: Ht 165.1 cm; Wt 83.5 kg
[~2019-08-16 16:36] MED LIST changes: +TRAMADOL HCL50 MG ORAL
[2019-08-16 16:49] VITALS: BP 107/61
--- NOTE | 2019-08-16 16:49 | NUR ---
ED Nurse Note: Patient walked in to ED c/o hyperglycemia. Per pt, she was referred by her PCP to go to the ER due to hyperglycemia BS >600. Reports urinary frequency and increased thirst. Pt has not been taking any DM medication for a over a year. Pt AAOX4, verbally responsive. No SOB. Afebrile. ERMd at bedside.
[2019-08-16] MEDS ORDERED: Insulin Human Regular 100units/ml 3ml IV ONE (17:00)
--- NOTE | 2019-08-16 17:00 | NUR ---
ED Nurse Note: IV line established. Blood speciemn collected and sent to lab.
--- NOTE | 2019-08-16 17:03 | Emergency Room Report ---
History of Present Illness General Chief Complaint: Abnormal Labs Source: Patient Present Illness HPI Disclaimer: Please note that this report is being documented using [employer] technology. This can lead to erroneous entry secondary to incorrect interpretation by the dictating instrument. HPI: 63-year-old female presents for evaluation of hyperglycemia. Patient is a diabetic and had been previously on metformin however has not been compliant with her medications for over 1 year. She denies abdominal pain, nausea, vomiting, fever, chills, weakness, dysuria, hematuria, flank pain or other symptoms. She reports increased thirst and urinary frequency over the past year. She saw her new PMD today where a fingerstick blood glucose read greater than 600. She was sent to the ED for evaluation. Denies prior history of DKA. Has not been on insulin. Reports intermittent PCP and cocaine use but not in the past 2 weeks. Denies alcohol use. No other complaints at this time. PMH: Diabetes PSH: Denies Allergies: Denies Social Hx: PCP and cocaine use, tobacco use Allergies: Coded Allergies: No Known Allergies (Unverified , 12/21/17) COVID-19 Screening Contact w/high risk pt: No Recent Travel to affected area: No Experienced COVID-19 symptoms?: No COVID-19 Testing performed CNC OPERATOR: No Nursing Documentation-PMH Past Medical History: No History, Except For Hx Cardiac Problems: No - high cholesterol Hx Hypertension: No Hx Pacemaker: No Hx Asthma: No Hx COPD: No Hx Diabetes: Yes - type 2 Hx Cancer: No Hx Gastrointestinal Problems: Yes - gastritis Hx Dialysis: No History Of Psychiatric Problem: No Hx Neurological Problems: No Hx Cerebrovascular Accident: No Hx Seizures: No Review of Systems All Other Systems: negative except mentioned in HPI Physical Exam Vital Signs Date Time Temp Pulse Resp B/P (MAP) Pulse Ox O2 Delivery O2 Flow Rate FiO2 08/16/19 16:45 96.6 91 15 107/61 (76) 99 Room Air General: Awake and alert, no acute distress HEENT: NC/AT. EOMI. Cardiovascular: RRR. S1 and S2 normal. No murmur appreciated Resp: Normal work of breathing. No cough, wheezing or crackles appreciated Abdomen: Abdomen is soft, nondistended. Nontender Skin: Intact. No abrasions, laceration or rash over the exposed skin MSK: Normal tone and bulk. Moving all extremities. No obvious deformity. Neuro: Awake and alert. Mentating appropriately. Procedures Critical Care Time Critical Care Time Total critical care time: Approximately 31 minutes Due to a high probability of clinically significant, life threatening deterioration, the patient required the highest level of preparedness to intervene emergently and I personally spent this critical care time directly and personally managing the patient. This critical care time included obtaining a history, examining the patient, pulse oximetry, ordering and reviewing studies , ordering treatments, evaluating response to treatment and updating management plan as needed, frequent reassessment and discussion with other providers as well as arranging for ultimate disposition. This critical to care time was performed to assess and manage the high probability of life-threatening deterioration that could result in multiorgan failure. This critical care time is separate from the separately billable procedures and treating other patients. Medical Decision Making Diagnostic Impression: Primary Impression: NOEMI (acute kidney injury) Additional Impressions: Dehydration Hyperglycemia Uncontrolled diabetes mellitus ER Course Is a 63-year-old female presenting for evaluation of hyperglycemia. Fingerstick in the ED rates greater than 600. Concern for DKA, HHS, kidney injury, dehydration, electrolyte abnormalities. Patient started IV fluids and insulin. Will check broad labs. She is in no distress or discomfort at this time. 1825: Labs show critically elevated glucose level though pH, electrolytes, ketones within normal limits. No evidence of DKA at this time. She continues to receive IV fluids. Glucose trending down. No evidence of urinary tract infection though the patient does appear dehydrated with elevated BUN/ creatinine consistent with acute kidney injury. She will be admitted for uncontrolled diabetes, dehydration, NOEMI. Admitted to panel physician, Emigdio magaña. Laboratory Tests Test 08/16/19 16:55 08/16/19 17:15 08/16/19 17:18 White Blood Count 7.3 K/UL (4.8-10.8) Red Blood Count 5.94 M/UL (4.20-5.40) H Hemoglobin 14.8 G/DL (12.0-16.0) Hematocrit 47.6 % (37.0-47.0) H Mean Corpuscular Volume 80 FL (80-99) Mean Corpuscular Hemoglobin 25.0 PG (27.0-31.0) L Mean Corpuscular Hemoglobin Concent 31.2 G/DL (32.0-36.0) L Red Cell Distribution Width 14.7 % (11.6-14.8) Platelet Count 228 K/UL (150-450) Mean Platelet Volume 10.5 FL (6.5-10.1) H Neutrophils (%) (Auto) 54.1 % (45.0-75.0) Lymphocytes (%) (Auto) 39.6 % (20.0-45.0) Monocytes (%) (Auto) 4.2 % (1.0-10.0) Eosinophils (%) (Auto) 0.9 % (0.0-3.0) Basophils (%) (Auto) 1.2 % (0.0-2.0) Sodium Level 127 MMOL/L (136-145) L Potassium Level 4.8 MMOL/L (3.5-5.1) Chloride Level 90 MMOL/L (98-107) L Carbon Dioxide Level 26 MMOL/L (21-32) Anion Gap 11 mmol/L (5-15) Blood Urea Nitrogen 19 mg/dL (7-18) H Creatinine 1.7 MG/DL (0.55-1.30) H Estimated Glomerular Filtration Rate 36.8 mL/min (>60) Glucose Level 860 MG/DL (74-106) *H Calcium Level 9.5 MG/DL (8.5-10.1) Magnesium Level 2.2 MG/DL (1.8-2.4) Total Bilirubin 0.3 MG/DL (0.2-1.0) Aspartate Amino Transferase (AST) 21 U/L (15-37) Alanine Aminotransferase (ALT) 44 U/L (12-78) Alkaline Phosphatase 139 U/L (46-116) H Troponin I 0.000 ng/mL (0.000-0.056) Total Protein 8.0 G/DL (6.4-8.2) Albumin 4.0 G/DL (3.4-5.0) Globulin 4.0 g/dL Albumin/Globulin Ratio 1.0 (1.0-2.7) Lipase 313 U/L (73-393) Acetone Level Negative (NEGATIVE) Urine Color Pale yellow Urine Appearance Clear Urine pH 5 (4.5-8.0) Urine Specific [place] 1.010 (1.005-1.035) Urine Protein Negative (NEGATIVE) Urine Glucose (UA) 4+ (NEGATIVE) H Urine Ketones Negative (NEGATIVE) Urine Blood Negative (NEGATIVE) Urine Nitrite Negative (NEGATIVE) Urine Bilirubin Negative (NEGATIVE) Urine Urobilinogen Normal MG/DL (0.0-1.0) Urine Leukocyte Esterase Negative (NEGATIVE) Urine Opiates Screen Negative (NEGATIVE) Urine Barbiturates Screen Negative (NEGATIVE) Phencyclidine (PCP) Screen Positive (NEGATIVE) H Urine Amphetamines Screen Negative (NEGATIVE) Urine Benzodiazepines Screen Negative (NEGATIVE) Urine Cocaine Screen Negative (NEGATIVE) Urine Marijuana (THC) Screen Negative (NEGATIVE) Arterial Blood pH 7.410 (7.350-7.450) Arterial Blood Partial Pressure CO2 37.4 mmHg (35.0-45.0) Arterial Blood Partial Pressure O2 104.6 mmHg (75.0-100.0) H Arterial Blood HCO3 23.2 mmol/L (22.0-26.0) Arterial Blood Oxygen Saturation 97.5 % (95-100) Arterial Blood Base Excess -1.1 (-2-2) Damien Test Positive EKG Diagnostic Results EKG Time: 16:58 Rate: normal Rhythm: NSR ST Segments: no acute changes Other Impression Sinus rhythm, normal axis, normal intervals, no ST segment changes. Rhythm Strip Diag. Results Rhythm Strip Time: 16:58 EP Interpretation: yes Rate: 75 Rhythm: NSR, no PVC's, no ectopy Last Vital Signs Date Time Temp Pulse Resp B/P (MAP) Pulse Ox O2 Delivery O2 Flow Rate FiO2 08/16/19 16:45 96.6 91 15 107/61 (76) 99 Room Air Disposition: ADMITTED INPATIENT Condition: Serious Pierre Welch MD Aug 16, 2019 17:03
[2019-08-16 17:14] LABS: BASOPHILS % (AUTO) 1.2 % (0.0-2.0); EOSINOPHILS % (AUTO) 0.9 % (0.0-3.0); HEMATOCRIT 47.6 % (37.0-47.0); HEMOGLOBIN 14.8 G/DL (12.0-16.0); LYMPHOCYTES % (AUTO) 39.6 % (20.0-45.0); MEAN CORPUSCULAR VOLUME 80 FL (80-99); MONOCYTES % (AUTO) 4.2 % (1.0-10.0); NEUTROPHILS % (AUTO) 54.1 % (45.0-75.0); PLATELET COUNT 228 K/UL (150-450); RED BLOOD COUNT 5.94 M/UL (4.20-5.40); RED CELL DISTRIBUTION WIDTH 14.7 % (11.6-14.8); WHITE BLOOD COUNT 7.3 K/UL (4.8-10.8)
--- NOTE | 2019-08-16 17:15 | NUR ---
ED Nurse Note: Urine specimen obtained and sen to lab.
[2019-08-16 17:25] LABS: ANION GAP 11 mmol/L (5-15); BLOOD UREA NITROGEN 19 mg/dL (7-18); CALCIUM 9.5 MG/DL (8.5-10.1); CARBON DIOXIDE 26 MMOL/L (21-32); CHLORIDE 90 MMOL/L (98-107); CREATININE 1.7 MG/DL (0.55-1.30); POTASSIUM 4.8 MMOL/L (3.5-5.1); SODIUM 127 MMOL/L (136-145)
[2019-08-16 17:26] LABS: ALANINE AMINOTRANSFERASE 44 U/L (12-78); ALKALINE PHOSPHATASE 139 U/L (46-116); ASPARTATE AMINO TRANSFERASE 21 U/L (15-37); BILIRUBIN,TOTAL 0.3 MG/DL (0.2-1.0)
[2019-08-16 17:32] LABS: APPEARANCE,URINE CLEAR; BILIRUBIN, URINE NEGATIVE (NEGATIVE); COLOR,URINE PALE YELLOW; GLUCOSE, URINE (UA) 4+ (NEGATIVE); KETONES,URINE NEGATIVE (NEGATIVE); LEUKOCYTE ESTERASE ,URINE NEGATIVE (NEGATIVE); NITRITE,URINE NEGATIVE (NEGATIVE); PH,URINE 5 (4.5-8.0); PROTEIN,URINE NEGATIVE (NEGATIVE); UROBILINOGEN,URINE NORMAL MG/DL (0.0-1.0)
--- NOTE | 2019-08-16 19:17 | NUR ---
HAND-OFF: Report given to Aleksandra PEREZ.
[2019-08-16 19:44] VITALS: BP 122/66
--- NOTE | 2019-08-16 19:44 | NUR ---
Nurse Note: Pt awake, alert, no signs of distress. Pt denies pain, shortness of breath, chest pain. VSS, afebrile. SLIV LT AC; patent. Pt ambulatory with steady gait. Skin intact. Belongings accounted for. BS 380. All safety measures met; will continue to monitor.
--- NOTE | 2019-08-16 20:45 | NUR ---
Nurse Note: Report given to HCRIS Alexandre for continuity of care.
[2019-08-16 20:50] VITALS: BP 116/74
--- NOTE | 2019-08-16 21:00 | NUR ---
NURSE NOTES: MD made aware that the pt arrived on the unit. RN asked for full admission orders and MD states that he will enter it and will come by by midnight. resource management planner made aware.
--- NOTE | 2019-08-16 21:00 | NUR ---
NURSE NOTES: Received report from Sallie ED RN. Pt arrived on unit via [place] with her belongings with her. Pt is awake, lying semi-higginbotham's; comfortably resting. No signs of acute distress noted. Pt denies any pain at this time. AOx4; able to make needs known. Checked IV site; patent and flushed. No erythema, bleeding, or infiltration noted. Pt stable on her feet. Bed at lowest position. Brakes on. Siderails up x3. Call light within reach. Pt oriented to room. Will continue to monitor.
[2019-08-16 21:10] VITALS: BP 126/69
--- NOTE | 2019-08-16 23:10 | NUR ---
NURSE NOTES: RN asked pharmacy to verify the MD orders. Pharmacy asks to call MD to verify orders as multiple insulin orders were ordered. MD made aware and will come by by midnight to see pt. mechanical engineering teacher made aware.
--- NOTE | 2019-08-16 23:45 | History and Physical ---
History of Present Illness General Reason for Hospitalization: Abnormal Labs Present Illness HPI 63YO AAF who reported from PCP office for a BG >400. She was seen in the ED with a known history of diabetes non adherent to metformin. Diagnosed in 2016. Her BG was >800 in ED with a pH of 7.4, bicarbonate of 23 and normal AG. There was no serum osm obtained. Her A1c>16. Patient denies n/v, abdominal pain, polyuria. Allergies: Coded Allergies: No Known Allergies (Unverified , 12/21/17) COVID-19 Screening Contact w/high risk pt: No Recent Travel to affected area: No Experienced COVID-19 symptoms?: No Medication History Scheduled Ibuprofen (Motrin), 600 MG ORAL THREE TIMES A DAY Lidocaine Patch* (Lidoderm Patch*), 1 PATCH TOPIC DAILY Metformin Hcl* (Metformin Hcl*), 500 MG ORAL TWICE A DAY, (Reported) Scheduled PRN Tramadol Hcl* (Ultram*), 50 MG ORAL Q6H PRN for For Pain Patient History Healthcare decision maker Resuscitation status Advanced Directive on File Review of Systems Constitutional: Reports: no symptoms Eye: Reports: no symptoms ENT: Reports: no symptoms Respiratory: Reports: no symptoms Cardiovascular: Reports: no symptoms Genitourinary: Reports: no symptoms Musculoskeletal: Reports: no symptoms Skin: Reports: no symptoms Psychiatric: Reports: no symptoms Neurological: Reports: no symptoms Physical Exam General Appearance: WD/WN, alert, mild distress Lines, tubes and drains: peripheral HEENT: normocephalic Neck: non-tender, normal alignment, supple Respiratory/Chest: chest wall non-tender, no respiratory distress Cardiovascular/Chest: normal peripheral pulses, normal rate, regular rhythm Abdomen: normal bowel sounds, non tender, soft Extremities: normal range of motion Skin Exam: normal pigmentation Neurologic: museum guide II-XII grossly normal Last 24 Hour Vital Signs Date Time Temp Pulse Resp B/P (MAP) Pulse Ox O2 Delivery O2 Flow Rate FiO2 08/16/19 21:51 Room Air 08/16/19 20:50 97.5 78 16 116/74 98 Room Air 08/16/19 20:50 97.5 78 16 116/74 98 Room Air 08/16/19 19:44 97.5 88 16 122/66 99 Room Air 08/16/19 16:49 96.6 94 15 107/61 99 Room Air 08/16/19 16:45 96.6 91 15 107/61 (76) 99 Room Air Laboratory Tests Test 08/16/19 16:05 08/16/19 16:55 08/16/19 17:15 08/16/19 17:18 Hemoglobin A1c > 16.0 % (4.3-6.0) H White Blood Count 7.3 K/UL (4.8-10.8) Red Blood Count 5.94 M/UL (4.20-5.40) H Hemoglobin 14.8 G/DL (12.0-16.0) Hematocrit 47.6 % (37.0-47.0) H Mean Corpuscular Volume 80 FL (80-99) Mean Corpuscular Hemoglobin 25.0 PG (27.0-31.0) L Mean Corpuscular Hemoglobin Concent 31.2 G/DL (32.0-36.0) L Red Cell Distribution Width 14.7 % (11.6-14.8) Platelet Count 228 K/UL (150-450) Mean Platelet Volume 10.5 FL (6.5-10.1) H Neutrophils (%) (Auto) 54.1 % (45.0-75.0) Lymphocytes (%) (Auto) 39.6 % (20.0-45.0) Monocytes (%) (Auto) 4.2 % (1.0-10.0) Eosinophils (%) (Auto) 0.9 % (0.0-3.0) Basophils (%) (Auto) 1.2 % (0.0-2.0) Sodium Level 127 MMOL/L (136-145) L Potassium Level 4.8 MMOL/L (3.5-5.1) Chloride Level 90 MMOL/L (98-107) L Carbon Dioxide Level 26 MMOL/L (21-32) Anion Gap 11 mmol/L (5-15) Blood Urea Nitrogen 19 mg/dL (7-18) H Creatinine 1.7 MG/DL (0.55-1.30) H Estimat Glomerular Filtration Rate 36.8 mL/min (>60) Glucose Level 860 MG/DL (74-106) *H Calcium Level 9.5 MG/DL (8.5-10.1) Magnesium Level 2.2 MG/DL (1.8-2.4) Total Bilirubin 0.3 MG/DL (0.2-1.0) Aspartate Amino Transf (AST/SGOT) 21 U/L (15-37) Alanine Aminotransferase (ALT/SGPT) 44 U/L (12-78) Alkaline Phosphatase 139 U/L (46-116) H Troponin I 0.000 ng/mL (0.000-0.056) Total Protein 8.0 G/DL (6.4-8.2) Albumin 4.0 G/DL (3.4-5.0) Globulin 4.0 g/dL Albumin/Globulin Ratio 1.0 (1.0-2.7) Lipase 313 U/L (73-393) Acetone Level Negative (NEGATIVE) Urine Color Pale yellow Urine Appearance Clear Urine pH 5 (4.5-8.0) Urine Specific [place] 1.010 (1.005-1.035) Urine Protein Negative (NEGATIVE) Urine Glucose (UA) 4+ (NEGATIVE) H Urine Ketones Negative (NEGATIVE) Urine Blood Negative (NEGATIVE) Urine Nitrite Negative (NEGATIVE) Urine Bilirubin Negative (NEGATIVE) Urine Urobilinogen Normal MG/DL (0.0-1.0) Urine Leukocyte Esterase Negative (NEGATIVE) Urine Opiates Screen Negative (NEGATIVE) Urine Barbiturates Screen Negative (NEGATIVE) Phencyclidine (PCP) Screen Positive (NEGATIVE) H Urine Amphetamines Screen Negative (NEGATIVE) Urine Benzodiazepines Screen Negative (NEGATIVE) Urine Cocaine Screen Negative (NEGATIVE) Urine Marijuana (THC) Screen Negative (NEGATIVE) Arterial Blood pH 7.410 (7.350-7.450) Arterial Blood Partial Pressure CO2 37.4 mmHg (35.0-45.0) Arterial Blood Partial Pressure O2 104.6 mmHg (75.0-100.0) H Arterial Blood HCO3 23.2 mmol/L (22.0-26.0) Arterial Blood Oxygen Saturation 97.5 % (95-100) Arterial Blood Base Excess -1.1 (-2-2) Damien Test Positive Test 08/16/19 19:36 08/16/19 21:08 POC Whole Blood Glucose Pending Pending Height (Feet): 5 Height (Inches): 5.00 Weight (Pounds): 180 Medications Current Medications Medications (Trade) Dose Ordered Sig/Anjel Route PRN Reason Start Time Stop Time Status Last Admin Dose Admin Acetaminophen (Tylenol) 650 mg Q4H PRN ORAL Mild Pain (Pain Scale 1-3) 08/16/19 22:15 09/15/19 22:14 Dextrose (Dextrose 50%) 25 ml Q30M PRN IV Hypoglycemia 08/16/19 22:15 11/14/19 22:14 Dextrose (Dextrose 50%) 50 ml Q30M PRN IV Hypoglycemia 08/16/19 22:15 11/14/19 22:14 Enoxaparin Sodium (Lovenox) 40 mg Q24H SUBQ 08/17/19 09:00 11/15/19 08:59 Insulin Aspart (NovoLOG Mix 70/ 30) 10 units PRE BFAST AND DINNER SUBQ 08/17/19 06:30 11/15/19 06:29 UNV Insulin Aspart (NovoLOG) BEFORE MEALS AND HS SUBQ 08/17/19 06:30 11/15/19 06:29 UNV Insulin Aspart (NovoLOG) BEFORE MEALS AND HS SUBQ 08/17/19 06:30 11/15/19 06:29 UNV Insulin Aspart (NovoLOG) BEFORE MEALS AND HS SUBQ 08/17/19 06:30 11/15/19 06:29 UNV Insulin Aspart (NovoLOG) 10 units NOVOTIAC SUBQ 08/17/19 06:30 11/15/19 06:29 UNV Insulin Detemir (Levemir) 10 units BEDTIME SUBQ 08/17/19 21:00 11/15/19 20:59 UNV Insulin Human NPH (Humulin N) 5 units PRE BFAST AND DINNER SUBQ 08/17/19 06:30 11/15/19 06:29 UNV Ondansetron HCl (Zofran) 4 mg Q6H PRN IVP Nausea & Vomiting 08/16/19 22:15 09/15/19 22:14 Sodium Chloride 1,000 ml @ 100 mls/hr Q10H IV 08/16/19 23:00 09/15/19 22:59 Assessment/Plan Problem List: (1) Uncontrolled diabetes mellitus Assessment & Plan: Not DKA. Likely just hyperglycemia. Can not r/o HHS. ORDERS - Continue on sliding scale - Give levemir 10units SQ qhs - Obtain C-peptide and anti-insulin antibody to see if insulin dependent ICD Codes: E11.65 - Type 2 diabetes mellitus with hyperglycemia SNOMED: 91322841, 430945603 Status: progressing Jose Luis Han D.O. Aug 16, 2019 23:45
[2019-08-17] VITALS: BP 96/56
[2019-08-17 04:00] VITALS: BP 109/63
[2019-08-17 06:23] LABS: BASOPHILS % (AUTO) 1.2 % (0.0-2.0); EOSINOPHILS % (AUTO) 2.3 % (0.0-3.0); HEMATOCRIT 46.8 % (37.0-47.0); HEMOGLOBIN 14.3 G/DL (12.0-16.0); LYMPHOCYTES % (AUTO) 53.7 % (20.0-45.0); MEAN CORPUSCULAR VOLUME 83 FL (80-99); NEUTROPHILS % (AUTO) 37.8 % (45.0-75.0); PLATELET COUNT 213 K/UL (150-450); RED BLOOD COUNT 5.66 M/UL (4.20-5.40); RED CELL DISTRIBUTION WIDTH 13.8 % (11.6-14.8); WHITE BLOOD COUNT 7.5 K/UL (4.8-10.8)
[2019-08-17] MEDS ORDERED: Insulin NPH SUBQ SCH (06:30)
[2019-08-17] MEDS ORDERED: NovoLOG Insulin Flexpen SUBQ SCH ×2 (06:30)
[2019-08-17 06:32] LABS: ANION GAP 11 mmol/L (5-15); BLOOD UREA NITROGEN 14 mg/dL (7-18); CALCIUM 8.5 MG/DL (8.5-10.1); CARBON DIOXIDE 26 MMOL/L (21-32); CHLORIDE 100 MMOL/L (98-107); CREATININE 1.1 MG/DL (0.55-1.30); POTASSIUM 4.1 MMOL/L (3.5-5.1); SODIUM 137 MMOL/L (136-145)
[2019-08-17] MEDS: NovoLOG Insulin Flexpen SUBQ SCH ×7 (06:51→20:43)
--- NOTE | 2019-08-17 07:28 | NUR ---
HAND-OFF: Report given to Essie Saunders RN. Pt is awake and in stable condition. Plan of care endorsed.
--- NOTE | 2019-08-17 07:30 | NUR ---
NURSE NOTES: Received patient in bed,alert and oriented x4.Patient is talkative. Denies pain or discomfort. No s/s of hypo/hyperglycemia. IV is intact, no s/s of infiltration. Call light and personnel items within reach. Will continue plan of care.
[2019-08-17 08:00] VITALS: BP 105/63
[2019-08-17] MEDS: Levemir Flexpen SUBQ SCH (08:29)
--- NOTE | 2019-08-17 08:50 | NUR ---
NURSE NOTES: Patient refused to take lovenox. Rn re-educated on medication. Patient fully understood about med and it's purpose. Patient denies SOB,chest pain, pain on calf, no swelling on leg. Will continue to monitor, explained the risks and benefits.
[2019-08-17] MEDS ORDERED: Enoxaparin 40mg Inj SUBQ SCH (09:00)
--- NOTE | 2019-08-17 10:58 | NUR ---
CASE MANAGEMENT:INITIAL REVIEW 63YR OLD FEMALE CC:ABNORMAL LABS; KNOWN DM BUT NOT COMPLIANT WITH MED FOR 1 YEAR REPORT INTERMITTENT COCAINE AND PCP USE SI:NOEMI . HYPERGLYCEMIA UNCONTROLLED . DEHYDRATION 96.6 91 15 107/61 99% ON RA BGLU 860 CREAT 1.7 NA+ 127 BUN 19 RBC 5.94 HCT 47.6 HA1C 16.0 ABG: pO2 104.6 URINE + GLUCOSE PHENCYCLIDINE + IS:IVF NS BOLUS X1 IV NOVOLIN R X1 \: 3E MED SURG UNIT DCP: HOME WHEN STABLE PLAN: CONTROL BLOOD GLUCOSE CASE MANAGEMENT: REVIEW 08/17/19 SI:NOEMI . HYPERGLYCEMIA UNCONTROLLED . DEHYDRATION 98.0 72 20 105/63 98% ON RA BGLU 396 RBC 5.66 INSULIN ANTIBODY-PENDING IS:LEVEMIR SQ QD NOVOLOG SQ AC+HS/SS TYLENOL Q4HR/PRN \: 3E MED SURG UNIT DCP: HOME WHEN STABLE PLAN: CONTROL BLOOD GLUCOSE ESTABLISH MEDICATION REGIMEN D/T NON COMPLIANCE HX DM EDUCATION
[2019-08-17 12:00] VITALS: BP 104/57
--- NOTE | 2019-08-17 13:04 | NUR ---
*-* INSURANCE *-* ALL CLINICALS HAVE BEEN FAXED TO: EILEEN FARRIS/STEVEN AUTH#[id number] [phone] F:[phone]
--- NOTE | 2019-08-17 13:46 | General Progress Note ---
Assessment/Plan Problem List: (1) Uncontrolled diabetes mellitus ICD Codes: E11.65 - Type 2 diabetes mellitus with hyperglycemia SNOMED: 65904033, 856095522 (2) Hyperglycemia ICD Codes: R73.9 - Hyperglycemia, unspecified SNOMED: 15412368 (3) NOEMI (acute kidney injury) ICD Codes: N17.9 - Acute kidney failure, unspecified SNOMED: 52931413, 5334902 (4) Dehydration ICD Codes: E86.0 - Dehydration SNOMED: 75860313, 5907383 Status: progressing Assessment/Plan: #Hyperglycemia- no DKA or HSS #Unconrolled DM -Patients blood sugars remain elevated on ISS -C-peptide pending - HgA1c greater than 16 -Diabetes education -Consult to endocrinology -appreciate discharge recommendations #NOEMI #Volume depletion -Fluid hydration -trend bmp -Consult to nephrology Spent 40 min with 20 min face to face on diabetes education. Discussed with consultants and RN. Subjective Constitutional: Reports: no symptoms HEENT: Reports: no symptoms Cardiovascular: Reports: no symptoms Respiratory: Reports: no symptoms Gastrointestinal/Abdominal: Reports: no symptoms Genitourinary: Reports: no symptoms Neurologic/Psychiatric: Reports: no symptoms Endocrine: Reports: increased thirst, increased urine Hematologic/Lymphatic: Reports: no symptoms Allergies: Coded Allergies: No Known Allergies (Unverified , 12/21/17) All Systems: reviewed and negative except above Subjective Pateint feels good today. Want to get her blood sugars under control. Objective Last 24 Hour Vital Signs Date Time Temp Pulse Resp B/P (MAP) Pulse Ox O2 Delivery O2 Flow Rate FiO2 08/17/19 12:00 98.1 62 18 104/57 (73) 98 08/17/19 09:00 Room Air 08/17/19 08:00 98.0 72 20 105/63 (77) 98 08/17/19 04:00 97.9 69 20 109/63 (78) 98 08/17/19 00:00 97.6 75 20 96/56 (69) 94 08/16/19 21:51 Room Air 08/16/19 21:10 98.2 69 18 126/69 (88) 98 08/16/19 20:50 97.5 78 16 116/74 98 Room Air 08/16/19 20:50 97.5 78 16 116/74 98 Room Air 08/16/19 19:44 97.5 88 16 122/66 99 Room Air 08/16/19 16:49 96.6 94 15 107/61 99 Room Air 08/16/19 16:45 96.6 91 15 107/61 (76) 99 Room Air Intake and Output 08/16/19 08/17/19 19:00 07:00 Intake Total 1000 ml 1700 ml Balance 1000 ml 1700 ml Intake Oral 600 ml IV Total 1000 ml 1100 ml # Voids 2 Laboratory Tests 08/16/19 16:05: Hemoglobin A1c > 16.0H 08/16/19 16:55: White Blood Count 7.3, Red Blood Count 5.94H, Hemoglobin 14.8, Hematocrit 47.6H , Mean Corpuscular Volume 80, Mean Corpuscular Hemoglobin 25.0L, Mean Corpuscular Hemoglobin Concent 31.2L, Red Cell Distribution Width 14.7, Platelet Count 228, Mean Platelet Volume 10.5H, Neutrophils (%) (Auto) 54.1, Lymphocytes (%) (Auto) 39.6, Monocytes (%) (Auto) 4.2, Eosinophils (%) (Auto) 0.9, Basophils (%) (Auto) 1.2, Sodium Level 127L, Potassium Level 4.8, Chloride Level 90L, Carbon Dioxide Level 26, Anion Gap 11, Blood Urea Nitrogen 19H, Creatinine 1.7H, Estimat Glomerular Filtration Rate 36.8, Glucose Level 860*H, Calcium Level 9.5, Magnesium Level 2.2, Total Bilirubin 0.3, Aspartate Amino Transf (AST/SGOT) 21, Alanine Aminotransferase (ALT/SGPT) 44, Alkaline Phosphatase 139H, Troponin I 0.000, Total Protein 8.0, Albumin 4.0, Globulin 4.0 , Albumin/Globulin Ratio 1.0, Lipase 313, Acetone Level Negative 08/16/19 17:15: Urine Color Pale yellow, Urine Appearance Clear, Urine pH 5, Urine Specific [place] 1.010, Urine Protein Negative, Urine Glucose (UA) 4+H, Urine Ketones Negative, Urine Blood Negative, Urine Nitrite Negative, Urine Bilirubin Negative , Urine Urobilinogen Normal, Urine Leukocyte Esterase Negative, Urine Opiates Screen Negative, Urine Barbiturates Screen Negative, Phencyclidine (PCP) Screen PositiveH, Urine Amphetamines Screen Negative, Urine Benzodiazepines Screen Negative, Urine Cocaine Screen Negative, Urine Marijuana (THC) Screen Negative 08/16/19 17:18: Arterial Blood pH 7.410, Arterial Blood Partial Pressure CO2 37.4, Arterial Blood Partial Pressure O2 104.6H, Arterial Blood HCO3 23.2, Arterial Blood Oxygen Saturation 97.5, Arterial Blood Base Excess -1.1, Damien Test Positive 08/16/19 19:36: POC Whole Blood Glucose [Pending] 08/16/19 21:08: POC Whole Blood Glucose [Pending] 08/17/19 04:45: White Blood Count 7.5, Red Blood Count 5.66H, Hemoglobin 14.3, Hematocrit 46.8, Mean Corpuscular Volume 83, Mean Corpuscular Hemoglobin 25.2L, Mean Corpuscular Hemoglobin Concent 30.5L, Red Cell Distribution Width 13.8, Platelet Count 213, Mean Platelet Volume 10.7H, Neutrophils (%) (Auto) 37.8L, Lymphocytes (%) (Auto ) 53.7H, Monocytes (%) (Auto) 5.0, Eosinophils (%) (Auto) 2.3, Basophils (%) ( Auto) 1.2, Sodium Level 137#, Potassium Level 4.1, Chloride Level 100, Carbon Dioxide Level 26, Anion Gap 11, Blood Urea Nitrogen 14, Creatinine 1.1, Estimat Glomerular Filtration Rate > 60, Glucose Level 340#H, C-Peptide [Pending], Calcium Level 8.5, Insulin Antibody [Pending] 08/17/19 04:54: POC Whole Blood Glucose 348H 08/17/19 08:26: POC Whole Blood Glucose 396H 08/17/19 11:31: POC Whole Blood Glucose 292H Height (Feet): 5 Height (Inches): 5.00 Weight (Pounds): 184 General Appearance: WD/WN, no apparent distress, alert, lethargic EENT: PERRL/EOMI Neck: non-tender, normal alignment Cardiovascular: normal peripheral pulses, normal rate, regular rhythm, no JVD Respiratory/Chest: chest wall non-tender, lungs clear, normal breath sounds Abdomen: normal bowel sounds, non tender, soft Extremities: normal range of motion, non-tender Neurologic: manager care management II-XII grossly normal, no motor/sensory deficits, alert, oriented x 3, responsive, normal mood/affect Skin: normal pigmentation, warm/dry Molly,Han. M.D. Aug 17, 2019 13:46
--- NOTE | 2019-08-17 15:00 | NUR ---
NURSE NOTES: Dr. Barnes made aware of refusal of lovenox.
[2019-08-17 16:00] VITALS: BP 108/65
--- NOTE | 2019-08-17 16:30 | Consultation ---
DATE OF CONSULTATION: 08/17/2019 ENDOCRINOLOGY CONSULTATION CONSULTING PHYSICIAN: Hitesh Gillespie MD REFERRING PHYSICIAN: Shannan Beal MD REASON FOR CONSULTATION: Diabetes management. HISTORY OF PRESENT ILLNESS: The patient is a 63-year-old female, who was sent from PCP office, came to emergency room with a glucose of over 500. Glucose in the emergency department was over 800 with a pH of 7.4, bicarb of 23, and normal anion gap. A1c is over 16. The patient has been on metformin monotherapy, which she has been taking it as an outpatient. PAST MEDICAL HISTORY: Diabetes. PAST SURGICAL HISTORY: Unknown. FAMILY HISTORY: Noncontributory. SOCIAL HISTORY: No smoking, alcohol, or drug use. REVIEW OF SYSTEMS: As per HPI. MEDICATIONS: As an outpatient reviewed and reconciled. LABORATORY VALUES: WBC 7, hemoglobin 14, hematocrit 46.8, platelets of 213. Chemistry, sodium 137, potassium 4.1, chloride 100, bicarbonate 26, BUN 14, creatinine 1.1. A1c of over 16. PHYSICAL EXAMINATION: VITAL SIGNS: Blood pressure 109/63, pulse of 69, respiratory rate of 20, temperature 97.9. HEENT: Pupils are equal and reactive to light. Sclerae are anicteric. NECK: No JVD. No thyromegaly. No bruit. LUNGS: Clear. HEART: Regular rate and rhythm. ABDOMEN: Positive bowel sounds. EXTREMITIES: No clubbing, cyanosis, or edema. DIAGNOSES: 1. Diabetes, out of control. 2. Noncompliance. PLAN: 1. Levemir 30 units a.m. 2. NovoLog 10 units before each meal. 3. NovoLog sliding scale before meals and at bedtime. 4. Further adjustment according to blood glucose values. 5. The patient should remain on insulin regimen after discharge 6. I will follow during her hospital stay. Thank you Dr. Beal for the courtesy of this consultation. Hitesh Gillespie M.D. DR: ROBIN JOB#: [id number] CC: SPARKLE
--- NOTE | 2019-08-17 16:39 | NUR ---
NURSE NOTES: RN tried to teach patient how to check blood sugar and to educate about diabetes per Dr. Barnes's order but patient stated that " I have been diabetes since 2005. I know how to check blood sugar and have all the stuff that I need @ home. RN printed about diabetes from patient education for patient's info.
--- NOTE | 2019-08-17 16:55 | NUR ---
NURSE NOTES: Patient requests for medication for constipation. RN spoke to Dr. Barnes and received orders to give docusate, MOM PRN and d/c lovenox since patient is refusing the med , ambulation for DVT prophylaxis. Read back the orders.
[2019-08-17] MEDS ORDERED: Milk of Magnesia 30ml Ud ORAL PRN (17:00)
[2019-08-17] MEDS: Docusate 100mg cap ORAL SCH (17:03)
--- NOTE | 2019-08-17 19:41 | NUR ---
HAND-OFF: Report given to Bettie and endorsed plan of care.
--- NOTE | 2019-08-17 19:42 | NUR ---
NURSE NOTES: Received report from Essie Saunders RN. Pt is awake, lying semi-higginbotham's; comfortably resting. No signs of acute distress noted. Pt denies any pain at this time. AOx4; able to make needs known. Checked IV site, line, and rate; patent and running. No erythema, bleeding, or infiltration noted. Bed at lowest position. Brakes on. Siderails up x3. Call light within reach. Pt oriented to the room. Will continue to monitor.
[2019-08-17 20:00] VITALS: BP 108/55
[2019-08-17] MEDS ORDERED: Levemir Flexpen SUBQ SCH (21:00)
[2019-08-18 04:00] VITALS: BP 107/66
[2019-08-18] MEDS: NovoLOG Insulin Flexpen SUBQ SCH ×7 (06:47→20:25)
--- NOTE | 2019-08-18 07:26 | NUR ---
HAND-OFF: Report given to CHRIS Ng. Pt is awake and in stable condition. Plan of care endorsed.
--- NOTE | 2019-08-18 07:50 | NUR ---
NURSE NOTES: Report received from Bettie PEREZ. Patient seen on rounds, AxOx4, not in distress or pain. Last blood glucose check 274 and nurse reports insulin coverage. Patient eating breakfast. PIV on left AC patent and infusing IVF as ordered. Pt is continent and ambulatory. Bed low and locked, siderails up x2, call light placed within reach and instructed to call nurse for assistance. Will continue to monitor.
[2019-08-18 08:00] VITALS: BP 129/86
[2019-08-18] MEDS: Docusate 100mg cap ORAL SCH ×2 (08:56→17:03)
[2019-08-18] MEDS: Levemir Flexpen SUBQ SCH (08:58)
[2019-08-18 09:50] LABS: ANION GAP 10 mmol/L (5-15); BLOOD UREA NITROGEN 12 mg/dL (7-18); CALCIUM 8.3 MG/DL (8.5-10.1); CARBON DIOXIDE 23 MMOL/L (21-32); CHLORIDE 105 MMOL/L (98-107); CREATININE 0.9 MG/DL (0.55-1.30); POTASSIUM 3.9 MMOL/L (3.5-5.1); SODIUM 138 MMOL/L (136-145)
--- NOTE | 2019-08-18 10:10 | NUR ---
RD ASSESSMENT & RECOMMENDATIONS SEE CARE ACTIVITY FOR COMPLETE ASSESSMENT DAILY ESTIMATED NEEDS: Needs based on DM, obese/ 63.5kg 25-28 kcals/kg 8045-8020 total kcals 1-1.3 g protein/kg 64-83 g total protein 25-30 mL/kg 4076-3328 total fluid mLs NUTRITION DIAGNOSIS: Altered nutrition related lab values R/T uncontrolled diabetes as evidenced by A1C of >16, BG 860 w/ Uglu 4+ upon adm, POC glu ([phone]). CURRENT DIET:CCHO HIGH PO DIET RECOMMENDATIONS: CCHO LOW ADDITIONAL RECOMMENDATIONS: * DM diet education and handout provided on 08/17 * Diet change as above to CCHO LOW * Monitor BGs closely -> monitor closely for hypoglycemia w/ current insulin regimen
--- NOTE | 2019-08-18 10:32 | NUR ---
*-* INSURANCE *-* ALL CLINICALS HAVE BEEN FAXED TO: EILEEN FARRIS/STEVEN AUTH#[id number] P:[phone] F:[phone]
[2019-08-18 12:00] VITALS: BP 125/75
--- NOTE | 2019-08-18 13:15 | NUR ---
NURSE NOTES: Left message with Dr. Beal re: pt's discharge. Awaiting response.
--- NOTE | 2019-08-18 13:30 | NUR ---
NURSE NOTES: Spoke with Dr. Barnes re: discharge. says to check if ok to discharge with Dr. Gillespie. Spoke with Dr. Gillespie, says pt's blood sugars still need to be monitored. Says he will make adjustments tonight with possible discharge tomorrow. says he will see patient then.
[2019-08-18] MEDS ORDERED: Levemir Flexpen SUBQ SCH (13:34)
--- NOTE | 2019-08-18 13:56 | NUR ---
Discharge planning CM asked if patient clear to DC MD stated still needs medication adjustment; please anticipate DC in am
--- NOTE | 2019-08-18 14:16 | NUR ---
CASE MANAGEMENT: REVIEW 08/18/2019 SI:NOEMI . HYPERGLYCEMIA UNCONTROLLED . DEHYDRATION 98.1 73 18 125/75 98% ON RA BGLU 303 ca+8.3 Insulin antibody-pending IS:IV NS @100ML/HR LEVEMIR SQ QD NOVOLOG SQ AC+HS/SS TYLENOL Q4HR/PRN \: 3E MED SURG UNIT DCP: HOME WHEN STABLE PLAN: CONTROL BLOOD GLUCOSE DM EDUCATION ON DIET MEDICATION ADJUSTMENT ~BGLU STILL HIGH
[2019-08-18] MEDS ORDERED: 1/2 NS 1000ml IV ONE (14:51)
--- NOTE | 2019-08-18 15:17 | General Progress Note ---
Assessment/Plan Problem List: (1) Uncontrolled diabetes mellitus ICD Codes: E11.65 - Type 2 diabetes mellitus with hyperglycemia SNOMED: 88738554, 862492840 (2) Hyperglycemia ICD Codes: R73.9 - Hyperglycemia, unspecified SNOMED: 77297589 (3) NOEMI (acute kidney injury) ICD Codes: N17.9 - Acute kidney failure, unspecified SNOMED: 05069988, 9818113 (4) Dehydration ICD Codes: E86.0 - Dehydration SNOMED: 21268830, 8095889 Status: progressing Assessment/Plan: #Hyperglycemia- no DKA or HSS #Unconrolled DM -Patients blood sugars remain elevated on ISS increasing to resistant dosing -C-peptide WNL - HgA1c greater than 16 -Diabetes education -Consult to endocrinology -appreciate discharge recommendations #NOEMI #Volume depletion -Fluid hydration -trend bmp -Consult to nephrology Spent 30 min with 10 min face to face on diabetes education. Discussed with consultants and RN. Subjective Date patient seen: Aug 18, 2019 Time patient seen: 08:00 Constitutional: Reports: no symptoms HEENT: Reports: no symptoms Cardiovascular: Reports: no symptoms Respiratory: Reports: no symptoms Gastrointestinal/Abdominal: Reports: no symptoms Genitourinary: Reports: no symptoms Endocrine: Reports: increased thirst, increased urine Hematologic/Lymphatic: Reports: no symptoms Allergies: Coded Allergies: No Known Allergies (Unverified , 12/21/17) Subjective Pateint feels good today. Want to get her blood sugars under control. Objective Last 24 Hour Vital Signs Date Time Temp Pulse Resp B/P (MAP) Pulse Ox O2 Delivery O2 Flow Rate FiO2 08/18/19 12:00 98.1 73 18 125/75 (92) 98 08/18/19 09:00 Room Air 08/18/19 08:00 98.2 76 21 129/86 (100) 98 08/18/19 04:00 98.0 62 20 107/66 (80) 97 08/17/19 21:00 Room Air 08/17/19 20:00 98.2 68 18 108/55 (72) 99 08/17/19 16:00 98.5 69 18 108/65 (79) 99 Intake and Output 08/17/19 08/18/19 18:59 06:59 Intake Total 1200 ml 3500 ml Balance 1200 ml 3500 ml Intake Oral 3500 ml IV Total 1200 ml Laboratory Tests 08/17/19 16:31: POC Whole Blood Glucose 309H 08/17/19 20:41: POC Whole Blood Glucose 288H 08/18/19 05:29: POC Whole Blood Glucose 274H 08/18/19 09:20: Sodium Level 138, Potassium Level 3.9, Chloride Level 105, Carbon Dioxide Level 23, Anion Gap 10, Blood Urea Nitrogen 12, Creatinine 0.9, Estimat Glomerular Filtration Rate > 60, Glucose Level 303H, Calcium Level 8.3L 08/18/19 11:09: POC Whole Blood Glucose 285H Height (Feet): 5 Height (Inches): 5.00 Weight (Pounds): 184 General Appearance: no apparent distress, alert, lethargic Neck: non-tender, normal alignment, supple Cardiovascular: normal peripheral pulses, regular rhythm, regularly irregular, no JVD Respiratory/Chest: chest wall non-tender, lungs clear, no respiratory distress , no accessory muscle use Abdomen: normal bowel sounds, non tender Extremities: normal range of motion Edema: 1+ Leg (L), 1+ Leg (R) Edema: trace edema Neurologic: [employer] appellate [employer] II-XII grossly normal, alert, oriented x 3 Shaq Barnes M.D. Aug 18, 2019 15:17
[2019-08-18 16:00] VITALS: BP 123/64
--- NOTE | 2019-08-18 16:11 | NUR ---
*-* INSURANCE *-* ALL CLINICALS HAVE BEEN FAXED TO: EILEEN FARRIS/[employer]EVEN AUTH#[id number] P:[phone] F:[phone]
--- NOTE | 2019-08-18 17:10 | NUR ---
*-*DISCHARGE PLANNING*-* CLINICALS FAXED TO: KESHA Durant/ [employer]UCILLE FARRIS P: [phone]
--- NOTE | 2019-08-18 19:07 | NUR ---
HAND-OFF: Report given to Malou PEREZ. Plan of care endorsed.
--- NOTE | 2019-08-18 19:30 | NUR ---
NURSE NOTES: Received report from Gaye PEREZ. Rounding is done. Patient is a/ox4. Denied pain or any distress at this time. Iv site is intact and IV fluid is running. Bed is on alarm, locked, and lowest position. Call light within reach. Will continue to monitor.
[2019-08-18 20:00] VITALS: BP 112/50
[2019-08-19] VITALS: BP 106/60
[2019-08-19 04:00] VITALS: BP 112/62
[2019-08-19] MEDS: NovoLOG Insulin Flexpen SUBQ SCH ×4 (06:20→12:49)
--- NOTE | 2019-08-19 07:23 | NUR ---
NURSE NOTES: Report received from Malou PEREZ, rounds made. Patient resting in semi-fowlers position in bed. AOx4, talkative, no distress/SOB/pain/NV. IVF 1/2 NS at 100 ml/hr to LAC, site asymptomatic. Patient tolerating breakfast. Plans for discharge today. Call light in reach, bed in lowest position, will continue to monitor.
--- NOTE | 2019-08-19 07:25 | NUR ---
HAND-OFF: Report given to Shell PEREZ. Patient in stable condition.
--- NOTE | 2019-08-19 07:49 | General Progress Note ---
Assessment/Plan Problem List: (1) Uncontrolled diabetes mellitus ICD Codes: E11.65 - Type 2 diabetes mellitus with hyperglycemia SNOMED: 92197741, 290929126 (2) NOEMI (acute kidney injury) ICD Codes: N17.9 - Acute kidney failure, unspecified SNOMED: 17170668, 0492521 (3) Hyperglycemia ICD Codes: R73.9 - Hyperglycemia, unspecified SNOMED: 73724953 Status: progressing Assessment/Plan: continue Levemir 36 units daily continue Novolog 12 units ac tid continue Novolog sliding scale ac / hs she will stay on insulin after DC Rx for insulin and diabetic supplies left in chart - with RN she is cleared for DC home from DM stand point Subjective Allergies: Coded Allergies: No Known Allergies (Unverified , 12/21/17) All Systems: reviewed and negative except above Subjective events noted glucose values improved Item Value Date Time Bedside Blood Glucose 205 mg/dl H 08/19/19 0630 Bedside Blood Glucose 154 mg/dl H 08/18/19 2100 Bedside Blood Glucose 246 mg/dl H 08/18/19 1707 Bedside Blood Glucose 285 mg/dl H 08/18/19 1339 Bedside Blood Glucose 274 mg/dl H 08/18/19 0858 Bedside Blood Glucose 274 mg/dl H 08/18/19 0647 Objective Last 24 Hour Vital Signs Date Time Temp Pulse Resp B/P (MAP) Pulse Ox O2 Delivery O2 Flow Rate FiO2 08/19/19 04:00 97.5 64 18 112/62 (79) 98 08/19/19 00:00 98.3 65 17 106/60 (75) 99 08/18/19 21:00 Room Air 08/18/19 20:00 99.1 72 18 112/50 (70) 96 08/18/19 16:00 98.3 76 17 123/64 (83) 95 08/18/19 12:00 98.1 73 18 125/75 (92) 98 08/18/19 09:00 Room Air 08/18/19 08:00 98.2 76 21 129/86 (100) 98 Intake and Output 08/18/19 08/19/19 19:00 07:00 Intake Total 2420 ml 1700 ml Balance 2420 ml 1700 ml Intake Oral 1320 ml 800 ml IV Total 1100 ml 900 ml # Voids 4 # Bowel Movements 1 Laboratory Tests 08/18/19 09:20: Sodium Level 138, Potassium Level 3.9, Chloride Level 105, Carbon Dioxide Level 23, Anion Gap 10, Blood Urea Nitrogen 12, Creatinine 0.9, Estimat Glomerular Filtration Rate > 60, Glucose Level 303H, Calcium Level 8.3L 08/18/19 11:09: POC Whole Blood Glucose 285H 08/18/19 16:14: POC Whole Blood Glucose 246H 08/18/19 20:22: POC Whole Blood Glucose 154H 08/19/19 06:17: POC Whole Blood Glucose 205H Height (Feet): 5 Height (Inches): 5.00 Weight (Pounds): 184 General Appearance: no apparent distress Neck: normal alignment Cardiovascular: normal rate Respiratory/Chest: lungs clear Abdomen: normal bowel sounds Objective Current Medications Medications (Trade) Dose Ordered Sig/Anjel Route PRN Reason Start Time Stop Time Status Last Admin Dose Admin Acetaminophen (Tylenol) 650 mg Q4H PRN ORAL Mild Pain (Pain Scale 1-3) 08/16/19 22:15 09/15/19 22:14 08/17/19 20:48 Dextrose (Dextrose 50%) 25 ml Q30M PRN IV Hypoglycemia 08/16/19 22:15 11/14/19 22:14 Dextrose (Dextrose 50%) 50 ml Q30M PRN IV Hypoglycemia 08/16/19 22:15 11/14/19 22:14 Docusate Sodium (Colace) 100 mg TWICE A DAY ORAL 08/17/19 18:00 09/16/19 17:59 08/18/19 17:03 Insulin Aspart (NovoLOG) BEFORE MEALS AND HS SUBQ 08/17/19 06:30 11/15/19 06:29 08/19/19 06:21 Insulin Aspart (NovoLOG) 12 units NOVOTIAC SUBQ 08/18/19 16:50 11/15/19 06:29 08/19/19 06:20 Insulin Detemir (Levemir) 36 units DAILY SUBQ 08/19/19 09:00 11/15/19 20:59 Magnesium Hydroxide (Mom) 30 ml DAILYPRN PRN ORAL Constipation 08/17/19 17:00 09/16/19 16:59 Ondansetron HCl (Zofran) 4 mg Q6H PRN IVP Nausea & Vomiting 08/16/19 22:15 09/15/19 22:14 Sodium Chloride 1,000 ml @ 100 mls/hr Q10H IV 08/16/19 23:00 09/15/19 22:59 08/19/19 06:22 Hitesh Gillespie MD Aug 19, 2019 07:49
[2019-08-19 08:00] VITALS: BP 112/62
[2019-08-19] MEDS ORDERED: Levemir Flexpen SUBQ SCH (09:00)
--- NOTE | 2019-08-19 09:31 | NUR ---
CASE MANAGEMENT: REVIEW 08/19/2019 SI:NOEMI . HYPERGLYCEMIA UNCONTROLLED . DEHYDRATION 97.5 64 18 112/62 98% ON RA BGLU 205 Insulin antibody-pending IS:IV NS @100ML/HR LEVEMIR SQ QD NOVOLOG SQ AC+HS/SS TYLENOL Q4HR/PRN \: 3E MED SURG UNIT DCP: HOME WHEN STABLE PLAN: CONTROL BLOOD GLUCOSE DM EDUCATION ON DIET CLEARED TO DC PER RIVET BUCKER
--- NOTE | 2019-08-19 09:52 | NUR ---
NURSE NOTES: Patient reports dizziness after coming out of bathroom. Assisted patient back to bed, patient remains safe. Bedside glucose performed 203. Encouraged PO fluid intake. Dizziness subsided. Will continue to monitor.
[2019-08-19] MEDS: Docusate 100mg cap ORAL SCH (09:54)
[2019-08-19] MEDS ORDERED: LEVEMIR FL100 UNIT/1 SUBQ (09:59)
[2019-08-19] MEDS ORDERED: NOVOLOG100 UNITS1 SUBQ ×2 (09:59)
--- NOTE | 2019-08-19 10:03 | Discharge Instructions ---
Discharge Instructions Discharge Instructions Call MD/Return to Hospital if: light headedness Services at Discharge: home health services Diet: diabetic calorie control Activity: as tolerated For Congestive Heart Failure Reminder Report to your physician any weight gain of 5 pounds or more in one week. Shaq Barnes M.D. Aug 19, 2019 10:03
--- NOTE | 2019-08-19 10:52 | NUR ---
*-* INSURANCE *-* ALL CLINICALS HAVE BEEN FAXED TO: EILEEN FARRIS/STEVEN AUTH#[id number] P:[phone] F:[phone]
--- NOTE | 2019-08-19 11:00 | NUR ---
NURSE NOTES: Updated Darshana ROMANO with patient's current address, per patient the address listed in chart is no longer her address.
--- NOTE | 2019-08-19 11:52 | Discharge Summary ---
Discharge Summary Hospital Course Date of Admission Aug 16, 2019 at 18:09 Date of Discharge 08/19/2019 Admitting Diagnosis Hyperglycemia HPI 63YO AAF who reported from PCP office for a BG >400. She was seen in the ED with a known history of diabetes non adherent to metformin. Diagnosed in 2015. Her BG was >800 in ED with a pH of 7.4, bicarbonate of 23 and normal AG. Her A1c >16. Patient denies n/v, abdominal pain, polyuria. Consultations Endocrinology Hospital Course Patient was admitted to control hyperglycemia which was difficult. Patents physical symptoms of dizziness and frequent urination resolved. Patients abnormal electrolytes were corrected. Endocrinology consulted and was given tailored home insulin regime. Multiple diabetes education sessions were had. Pt will go home with [facility] for insulin and diabetes education. ED precautions given. She will have close follow up with PCP and Endocrinology. Spent 35 min with 10 min face to face on diabetes education. Discussed with consultants and RN. Extensive discharge coordination for home health. Discharge Medications New Medications: Insulin Aspart (Novolog Flexpen) 100 Unit/1 Ml Insuln.pen 12 UNITS SUBQ NOVOTIAC for 30 Days, EA Insulin Aspart (Novolog Flexpen) 100 Unit/1 Ml Insuln.pen 0 UNITS SUBQ BEFORE MEALS AND HS for 30 Days, #30 EA Insulin Detemir (Levemir Flexpen) 100 Unit/1 Ml Insuln.pen 36 UNITS SUBQ DAILY for 30 Days, EA Discontinued Medications: Ibuprofen (Motrin) 600 Mg Tablet 600 MG ORAL THREE TIMES A DAY, #30 TAB 0 Refills Lidocaine Patch* (Lidoderm Patch*) 1 Each Adh..patch 1 PATCH TOPIC DAILY, #30 PATCH 0 Refills Patch(es) may remain in place for up to 12 hours in any 24-hour period. Metformin Hcl* (Metformin Hcl*) 500 Mg Tablet 500 MG ORAL TWICE A DAY, TAB Tramadol Hcl* (Ultram*) 50 Mg Tablet 50 MG ORAL Q6H PRN for For Pain, #12 TAB 0 Refills Discharge Condition Upon Discharge: stable Discharge Vital Signs Last Vital Signs Date Time Temp Pulse Resp B/P (MAP) Pulse Ox O2 Delivery O2 Flow Rate FiO2 08/19/19 09:00 Room Air 08/19/19 08:00 98.5 66 18 112/62 (79) 97 Discharge Disposition Patient was discharged to home with [facility] Discharge Diagnoses: (1) Uncontrolled diabetes mellitus (2) NOEMI (acute kidney injury) (3) Hyperglycemia (4) Dehydration (5) Neuropathy Discharge Instructions Discharge Instructions Call MD/Return to Hospital if: light headedness Services Upon Discharge: home health services Activity: as tolerated Shaq Barnes M.D. Aug 19, 2019 11:52
[2019-08-19 12:00] VITALS: BP 137/69
--- NOTE | 2019-08-19 14:00 | NUR ---
NURSE NOTES: Discharge instructions and prescriptions x2(Dr. Gillespie) reviewed with patient, verbalized understanding. Provided diabetic/insulin/importance of daily foot care teaching, demonstration and instructions throughout shift. Patient performed flexpen insulin injection with Levemir and with Regular insulin with RN standby assistance, patient injection technique needs reminders. Provided printed education on diabetes, insulin, daily foot care. Offered for patient to take [place] [facility] [place], stated she needs to "make one stop before I go home". Provided after lunch snack for patient to take with her. All belongings and prescriptions given to patient. Ambulated down to lobby with RN, in stable condition. Discharged home at 1400.
[2019-08-19] MEDS ORDERED: Tubing IV Secondary IV ONE (14:02)
--- NOTE | 2019-08-19 15:41 | NUR ---
*-*DISCHARGE PLANNED*-* PATIENT HAS BEEN ACCEPTED WITH: [facility] P: [phone] S/W APRIL WILL SERVICE PATIENT FOR HOME HEALTH SERVICE.
--- NOTE | 2019-08-22 10:53 | NUR ---
*-* INSURANCE *-* DISCHARGE SUMMARY HAS BEEN FAXED TO: EILEEN FARRIS/STEVEN AUTH#[id number] P:[phone] F:[phone]
== END 2019-08-19 14:03 | disposition home health service (06) | DRG 420 ==
LOC: EMR 17:00 → 3E 18:09 → EDBEDREQ 20:23
DX: E11.65 Type 2 diabetes mellitus with hyperglycemia (principal); N17.9 Acute kidney failure, unspecified; E86.0 Dehydration; Z91.14 Patient's other noncompliance with medication regimen; Z79.4 Long term (current) use of insulin; G62.9 Polyneuropathy, unspecified
CPT/HCPCS: 36415; 36600; 80048; 80053; 80307; 81003; 82009; 82803; 82962; 83036; 83690; 83735; 84484; 84681; 85025; 86337; 93005; 96361; 96374; 99291; J1815; J7030; S5561

== ENCOUNTER → 2019-11-30 | Emergency (ER) | payer MEDICAID ==
[~2019-11-30] VITALS: Ht 165.1 cm; Wt 86.2 kg
[~2019-11-30] MED LIST changes: +LEVEMIR FL100 UNIT/1 SUBQ; +NOVOLOG100 UNITS1 SUBQ; +Phenazopyridine 200mg tab ORAL ONE
--- NOTE | 2019-11-30 17:44 | NUR ---
ED Nurse Note: urine collected, sent to lab
[2019-11-30 18:39] LABS: APPEARANCE,URINE CLEAR; BILIRUBIN, URINE NEGATIVE (NEGATIVE); COLOR,URINE PALE YELLOW; GLUCOSE, URINE (UA) 4+ (NEGATIVE); KETONES,URINE NEGATIVE (NEGATIVE); LEUKOCYTE ESTERASE ,URINE NEGATIVE (NEGATIVE); NITRITE,URINE NEGATIVE (NEGATIVE); PH,URINE 5 (4.5-8.0); PROTEIN,URINE NEGATIVE (NEGATIVE); UROBILINOGEN,URINE NORMAL MG/DL (0.0-1.0)
--- NOTE | 2019-11-30 19:06 | Emergency Room Report ---
History of Present Illness General Chief Complaint: Female Urogenital Problems Source: Patient Present Illness HPI 64 YO female presents to the ED c/o 11/18 dysuria and vaginal irritation x 3 days. no d/c. no fevers or chills. pt. already tried yeast infection treatment. She has suspicion of BV. Also needs refill of metformin. last took some yesterday. 500mg BID. Pt. declines STD gonorrhea or chlamydia prophylaxis. Pt. denies suspicion of G & C. She reports she thought she had yeast infection but treated herself with no relief. Pt. denies vaginal d/c. She denies abdominal pain or tenderness. She denies nausea or vomiting. She denies hematuria, or frequency. She denies swollen tender lymph nodes. She denies rashes. She reports some burning irritation at rest when not urinating. Allergies: Coded Allergies: No Known Allergies (Unverified , 12/21/17) COVID-19 Screening Contact w/high risk pt: No Recent Travel to affected area: No Experienced COVID-19 symptoms?: No COVID-19 Testing performed PIPELINE ENGINEER: No Patient History Past Medical History: see triage record Past Surgical History: none Pertinent Family History: none Last Menstrual Period: na Now: No Reviewed Nursing Documentation: PMH: Agreed; PSxH: Agreed Nursing Documentation-PMH Past Medical History: No History, Except For Hx Cardiac Problems: Yes Hx Hypertension: No Hx Pacemaker: No Hx Asthma: No Hx COPD: No Hx Diabetes: Yes Hx Cancer: No Hx Gastrointestinal Problems: No Hx Dialysis: No Hx Neurological Problems: No Hx Cerebrovascular Accident: No Hx Seizures: No Review of Systems All Other Systems: negative except mentioned in HPI Physical Exam Vital Signs Date Time Temp Pulse Resp B/P (MAP) Pulse Ox O2 Delivery O2 Flow Rate FiO2 11/30/19 16:49 98.4 84 18 109/55 (73) 97 Room Air Sp02 EP Interpretation: reviewed, normal General Appearance: no apparent distress, alert, GCS 15, non-toxic Head: normocephalic, atraumatic Eyes: bilateral eye normal inspection, bilateral eye PERRL ENT: hearing grossly normal, normal voice Neck: full range of motion Respiratory: lungs clear, normal breath sounds, speaking full sentences Cardiovascular #1: regular rate, rhythm Gastrointestinal: normal bowel sounds, non tender, soft, non-distended, no guarding Genitourinary: normal inspection, no CVA tenderness, adnexa normal, bladder normal, deferred - pelvic deferred by pt. Musculoskeletal: back normal, normal range of motion, gait/station normal, non- tender Neurologic: alert, motor strength/tone normal, oriented x3, sensory intact, responsive, speech normal Psychiatric: judgement/insight normal Skin: no rash, normal color Lymphatic: no adenopathy Medical Decision Making PA Attestation Dr. Sharp Is my supervising Physician whom patient management has been discussed with. Diagnostic Impression: Primary Impression: Vaginitis Qualified Codes: N76.0 - Acute vaginitis ER Course 64 YO female presents to the ED c/o 11/18 dysuria and vaginal irritation x 3 days. no d/c. no fevers or chills. pt. already tried yeast infection treatment. She has suspicion of BV. Also needs refill of metformin. last took some yesterday. 500mg BID. Pt. declines STD gonorrhea or chlamydia prophylaxis. Pt. denies suspicion of G & C. She reports she thought she had yeast infection but treated herself with no relief. Pt. denies vaginal d/c. She denies abdominal pain or tenderness. She denies nausea or vomiting. She denies hematuria, or frequency. She denies swollen tender lymph nodes. She denies rashes. She reports some burning irritation at rest when not urinating. Ddx considered but are not limited to UTi , Pyelo, STI, Stone, Cystitis Vital signs: are WNL, pt. is afebrile H&PE are most consistent with UTI vs. Vaginitis ORDERS: - UA labs are attached- unremarkable ED INTERVENTIONS: None required at this time. DISCHARGE: At this time pt. is stable for d/c to home. Will provide printed patient care instructions, and any necessary prescriptions. Care plan and follow up instructions have been discussed with the patient prior to discharge. Labs Test 11/30/19 17:00 Urine Color Pale yellow Urine Appearance Clear Urine pH 5 (4.5-8.0) Urine Specific [place] 1.010 (1.005-1.035) Urine Protein Negative (NEGATIVE) Urine Glucose (UA) 4+ (NEGATIVE) Urine Ketones Negative (NEGATIVE) Urine Blood Negative (NEGATIVE) Urine Nitrite Negative (NEGATIVE) Urine Bilirubin Negative (NEGATIVE) Urine Urobilinogen Normal MG/DL (0.0-1.0) Urine Leukocyte Esterase Negative (NEGATIVE) Last Vital Signs Date Time Temp Pulse Resp B/P (MAP) Pulse Ox O2 Delivery O2 Flow Rate FiO2 11/30/19 16:49 98.4 84 18 109/55 (73) 97 Room Air Disposition: HOME, SELF-CARE Condition: Stable Scripts Metronidazole* (FLAGYL*) 500 Mg Tablet 500 MG ORAL BID for 7 Days, #14 TAB Prov: Esther Marcum 11/30/19 Metformin Hcl* (METFORMIN HCL*) 500 Mg Tablet 500 MG ORAL TWICE A DAY for Diabetes Mellitus for 30 Days, #60 TAB Prov: Esther Marcum 11/30/19 Patient Instructions: Vaginitis Additional Instructions: Take medications as directed. Follow up with a Primary Care Provider in 3-5 days, even if your symptoms have resolved. Return sooner to ED if new symptoms occur, or current symptoms become worse. - Please note that this Emergency Department Report was dictated using [employer]ixo[employer] retention representative technology software, occasionally this can lead to erroneous entry secondary to interpretation by the dictation equipment. Esther Marcum Nov 30, 2019 19:06
[2019-11-30 19:12] VITALS: BP 109/55
[2019-11-30 19:21] VITALS: BP 115/76
--- NOTE | 2019-11-30 19:21 | NUR ---
ER DISCHARGE NOTE: Patient is cleared to be discharged per ERPA, pt is aox4, on room air, with stable vital signs. pt was given dc and prescription instructions, pt was able to verbalize understanding, pt id band removed. pt is able to ambulate with steady gait. pt took all belongings.
== END | disposition home or self-care (01) ==
LOC: EMR 19:00
DX: N76.0 Acute vaginitis (principal); E11.9 Type 2 diabetes mellitus without complications; Z79.84 Long term (current) use of oral hypoglycemic drugs
CPT/HCPCS: 81003; Z7502; 99282

== ENCOUNTER 2019-12-25 14:40 | Emergency (ER) | payer MEDICAID ==
[~2019-12-25] VITALS: Ht 165.1 cm; Wt 86.2 kg
[~2019-12-25 14:40] MED LIST changes: -Phenazopyridine 200mg tab ORAL ONE
[2019-12-25 14:55] VITALS: BP 113/67
--- NOTE | 2019-12-25 14:55 | NUR ---
ED Nurse Note: Pt walked in to Ed from home c/o discoloration (purple green) to her left index finger after she smashed her finger and removed her acrylic x1 week ago. Denies pain. AAOx4, no SOB. ERPA at bedside.
--- NOTE | 2019-12-25 15:07 | NUR ---
ED Nurse Note: Xray at bedside.
[2019-12-25] MEDS ORDERED: AUGMENTIN 875-1 EAC1 ORAL (15:17)
--- NOTE | 2019-12-25 15:17 | Emergency Room Report ---
History of Present Illness General Chief Complaint: Upper Extremity Injury Source: Patient Present Illness HPI 64-year-old female with history of diabetes currently insulin-dependent here complaining of left index finger pain x1 week after removing acrylic nails and smashing due to the door. Patient has a subungual hematoma which has resolved and no tenderness noted. Patient has range of motion neurovascularly intact. Is afebrile. Medication for symptom relief. Denies all other injuries. No pus drainage noted. Denies any pain, tingling or numbness at this time. Allergies: Coded Allergies: No Known Allergies (Unverified , 12/21/17) COVID-19 Screening Contact w/high risk pt: No Recent Travel to affected area: No Experienced COVID-19 symptoms?: No COVID-19 Testing performed METER MAINTENANCE PERSON: No Patient History Past Medical History: see triage record Past Surgical History: none Pertinent Family History: none Now: No Immunizations: UTD Reviewed Nursing Documentation: PMH: Agreed; PSxH: Agreed Nursing Documentation-PMH Past Medical History: No History, Except For Hx Cardiac Problems: Yes Hx Hypertension: No Hx Pacemaker: No Hx Asthma: No Hx COPD: No Hx Diabetes: Yes Hx Cancer: No Hx Gastrointestinal Problems: No Hx Dialysis: No Hx Neurological Problems: No Hx Cerebrovascular Accident: No Hx Seizures: No Review of Systems All Other Systems: negative except mentioned in HPI Physical Exam Vital Signs Date Time Temp Pulse Resp B/P (MAP) Pulse Ox O2 Delivery O2 Flow Rate FiO2 12/25/19 14:47 97.0 85 19 113/67 (82) 100 Room Air Sp02 EP Interpretation: reviewed, normal General Appearance: no apparent distress, alert, GCS 15, non-toxic Head: normocephalic, atraumatic Eyes: bilateral eye normal inspection, bilateral eye PERRL ENT: hearing grossly normal, normal pharynx, no angioedema, normal voice Neck: full range of motion, supple/symm/no masses Respiratory: chest non-tender, lungs clear, normal breath sounds, speaking full sentences Cardiovascular #1: regular rate, rhythm, no edema Cardiovascular #2: 2+ carotid (R), 2+ carotid (L), 2+ radial (R), 2+ radial (L), 2+ dorsalis pedis (R), 2+ dorsalis pedis (L) Gastrointestinal: normal bowel sounds, non tender, soft, non-distended, no guarding, no rebound Rectal: deferred Genitourinary: no CVA tenderness Musculoskeletal: back normal Neurologic: alert, motor strength/tone normal, oriented x3, sensory intact, responsive, speech normal Psychiatric: judgement/insight normal, memory normal, mood/affect normal, no suicidal/homicidal ideation Skin: rash - Minimal hematoma underneath the nailbed of left index finger without any tenderness of pus drainage Lymphatic: no adenopathy Medical Decision Making PA Attestation All diagnoses and treatment plans were reviewed and discussed with my supervising physician Dr. Welch Diagnostic Impression: Primary Impression: Crushing injury of finger Additional Impression: Cellulitis, finger ER Course 64-year-old female with history of diabetes currently insulin-dependent here complaining of left index finger pain x1 week after removing acrylic nails and smashing due to the door. Patient has a subungual hematoma which has resolved and no tenderness noted. Patient has range of motion neurovascularly intact. Is afebrile. Medication for symptom relief. Denies all other injuries. No pus drainage noted. Denies any pain, tingling or numbness at this time. Ddx considered but are not limited to : Cellulitis, crush injury finger, superficial infection, abscess Vital signs: are WNL, pt. is afebrile H&PE are most consistent with: Crush injury of finger, cellulitis ORDERS: Left hand x-ray, Augmentin ED INTERVENTIONS: None required at this time. DISCHARGE: At this time pt. is stable for d/c to home. Will provide printed patient care instructions, and any necessary prescriptions. Care plan and follow up instructions have been discussed with the patient prior to discharge. At this time no splinting or wound care needed patient obvious infection status. Also to stop open and not splinted. If worsening symptoms return to emergency room Other X-Ray Diagnostic Results Other X-Ray Diagnostic Results : X-Ray ordered: Left hand # of Views/Limited Vs Complete: 3 View Indication: Pain EP Interpretation: Yes PA Xray: Interpretation reviewed, by supervising MD, and agrees with findings. Interpretation: no dislocation, no soft tissue swelling, no fractures Impression: No acute disease Electronically Signed by: José Miguel Sharma PA-C Last Vital Signs Date Time Temp Pulse Resp B/P (MAP) Pulse Ox O2 Delivery O2 Flow Rate FiO2 12/25/19 14:55 97.0 85 19 113/67 100 Room Air Disposition: HOME, SELF-CARE Condition: Stable Scripts Amoxicillin/Potassium Clav 875-125* (AUGMENTIN 875-125 TABLET*) 1 Each Tablet 1 TAB ORAL TWICE A DAY for 7 Days, #14 TAB Prov: José Miguel Back 12/25/19 Patient Instructions: Cellulitis, [id number], Crush Injury, Fingers or Toes, [id number] Additional Instructions: Take medication as directed, follow primary care provider, if worsening symptoms return to the emergency José Miguel Back Dec 25, 2019 15:17
[2019-12-25 15:21] VITALS: BP 113/67
--- NOTE | 2019-12-25 15:21 | NUR ---
ED Nurse Note: Pt cleared by ERPA for discharge. DC instructions/prescription was given and explained to pt and verbalized understanding of teachings. All medical deviecs such as ID band removed. Pt is AAO x4, ambulatory and left with all personal belongings.
--- NOTE | 2019-12-25 15:44 | Diagnostic Imaging Report ---
FILM LEFT FINGER HISTORY: Trauma TECHNIQUE: 3 views of the left finger One or more of the following dose reduction techniques were used: automated exposure control, adjustment of the mA and/or kV according to patient size, use of iterative reconstruction technique. Total Exam volume computed tomography dose index (CTDIvol) = mGy and Dose Length Product (DLP) = mGY-c COMPARISON: None FINDINGS: Soft tissue swelling demonstrated with joint space narrowing of the proximal and distal interphalangeal joints and nondisplaced fracture of the distal portion of the proximal phalanx of the second digit IMPRESSION: Degenerative changes with nondisplaced fracture at the distal portion of the proximal phalanx of the second digit.
== END 2019-12-25 15:21 | disposition home or self-care (01) ==
LOC: EMR 15:15
DX: S67.191A Crushing injury of left index finger, initial encounter (principal); L03.012 Cellulitis of left finger; S62.641A Nondisplaced fracture of proximal phalanx of left index finger, initial encounter for closed fracture; W22.8XXA Striking against or struck by other objects, initial encounter; Y92.9 Unspecified place or not applicable; E11.9 Type 2 diabetes mellitus without complications
CPT/HCPCS: 73140; Z7502; 99283

== ENCOUNTER 2020-01-01 15:42 | Emergency (ER) | payer MEDICAID ==
[~2020-01-01] VITALS: Ht 165.1 cm; Wt 86.2 kg
[~2020-01-01 15:42] MED LIST changes: +AUGMENTIN 875-1 EAC1 ORAL
[2020-01-01 15:55] VITALS: BP 122/69
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
[2020-01-01] MEDS ORDERED: IBUPROFEN600 M1 ORAL (16:12)
[2020-01-01] MEDS ORDERED: ROBAXIN-750750 MG PO (16:12)
[2020-01-01] MEDS ORDERED: LIDODERM700 M1 TOPIC (16:12)
[2020-01-01] MEDS ORDERED: Methocarbamol 750mg tab ORAL ONE (16:15)
[2020-01-01] MEDS ORDERED: Ketorolac 30mg Inj IM ONE (16:15)
[2020-01-01 16:25] VITALS: BP 122/69
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
== END 2020-01-01 16:25 | disposition home or self-care (01) ==
LOC: EMR 16:14
DX: M54.6 Pain in thoracic spine (principal); M54.5 Low back pain; E11.9 Type 2 diabetes mellitus without complications; V18.2XXA Unspecified pedal cyclist injured in noncollision transport accident in nontraffic accident, initial encounter
CPT/HCPCS: 96372; J1885; Z7502; 99283

== ENCOUNTER 2020-04-20 11:17 | Emergency (ER) | payer MEDICAID ==
[~2020-04-20] VITALS: Ht 162.6 cm; Wt 86.2 kg
[~2020-04-20 11:17] MED LIST changes: +IBUPROFEN600 M1 ORAL
[2020-04-20 11:27] VITALS: BP 97/55
--- NOTE | 2020-04-20 11:44 | Emergency Room Report ---
History of Present Illness General Chief Complaint: Vaginal Source: Patient Present Illness HPI Disclaimer: Please note that this report is being documented using DRAGON technology. This can lead to erroneous entry secondary to incorrect interpretation by the dictating instrument. HPI: 64-year-old female presents with vaginal discomfort and mild discharge. She believes she has a yeast infection. Treated with Diflucan after completing course of antibiotics several weeks ago. States this happened to her in the past. Denies recent sexual intercourse. Denies vaginal bleeding, lower pelvic pain or cramping. She also states she has a itchy rash near the buttock. Denies vesicles or weeping. Denies denies hematuria. Reports mild dysuria beginning today. PMH: Diabetes PSH: Reviewed Allergies: Reviewed Social Hx: Reviewed Allergies: Coded Allergies: No Known Allergies (Unverified , 12/21/17) COVID-19 Screening Contact w/high risk pt: No Recent Travel to affected area: No Experienced COVID-19 symptoms?: No COVID-19 Testing performed POWDER HAND: No COVID-19 Screening: Negative COVID-19 Nursing Documentation-PMH Hx Cardiac Problems: No Hx Hypertension: No Hx Pacemaker: No Hx Asthma: No Hx COPD: No Hx Diabetes: Yes Hx Cancer: No Hx Gastrointestinal Problems: No Hx Dialysis: No History Of Psychiatric Problem: No Hx Neurological Problems: No Hx Cerebrovascular Accident: No Hx Seizures: No Review of Systems All Other Systems: negative except mentioned in HPI Physical Exam Vital Signs Date Time Temp Pulse Resp B/P (MAP) Pulse Ox O2 Delivery O2 Flow Rate FiO2 04/20/20 11:20 97.7 91 18 97/55 (69) 100 Room Air General: Awake and alert, no acute distress HEENT: NC/AT. EOMI. Resp: Normal work of breathing Abdomen: Soft, nontender, nondistended HAND STRIPPER: Normal appearing external genitalia. No rash or skin breakdown. No vesicles. No significant purulent drainage. No bleeding. No masses visualized on speculum exam. Scant white thin discharge. Skin: Intact. No abrasions, laceration or rash over the exposed skin MSK: Normal tone and bulk. Moving all extremities. No obvious deformity. Neuro: Awake and alert. Mentating appropriately Medical Decision Making Diagnostic Impression: Primary Impression: UTI (urinary tract infection) ER Course 64-year-old female presents for vaginal discomfort. Recently took Diflucan thinking it was yeast infection after course of antibiotics. This happened to her in the past. Denies recent sexual contact. No rash skin breakdown or signs of significant infection noted on exam. Urinalysis shows bacteria in urine but otherwise no significant change inflammatory markers. Wet mount shows no yeast, no clue cells, no trichomonas. Will discharge on Keflex for possible early UTI. Will also give Benadryl itch cream for her skin discomfort but I do not see sign of cellulitis, abscess, herpes infection or other skin findings at this time. Follow-up with [facility]. Instructed to return new or worsening symptoms. She understands agrees with this treatment plan. Laboratory Tests Test 04/20/20 11:44 Urine Color Pale yellow Urine Appearance Slightly cloudy Urine pH 5 (4.5-8.0) Urine Specific [place] 1.015 (1.005-1.035) Urine Protein Negative (NEGATIVE) Urine Glucose (UA) 4+ (NEGATIVE) H Urine Ketones Negative (NEGATIVE) Urine Blood 1+ (NEGATIVE) H Urine Nitrite Negative (NEGATIVE) Urine Bilirubin Negative (NEGATIVE) Urine Urobilinogen Normal MG/DL (0.0-1.0) Urine Leukocyte Esterase Negative (NEGATIVE) Urine RBC 0-2 /HPF (0 - 2) Urine WBC 0-2 /HPF (0 - 2) Urine Squamous Epithelial Cells Few /LPF (NONE/OCC) Urine Bacteria Moderate /HPF (NONE) H Microbiology Date/Time Source Procedure Growth Status 04/20/20 11:58 Vaginal Wet Prep - Final Complete Last Vital Signs Date Time Temp Pulse Resp B/P (MAP) Pulse Ox O2 Delivery O2 Flow Rate FiO2 04/20/20 11:27 97.7 18 97/55 100 Room Air 04/20/20 11:20 91 Disposition: HOME, SELF-CARE Condition: Stable Scripts Diphenhydramine HCl/Zinc Acet (Benadryl Itch Stopping Crm) 28.3 Gm Cream..g. 1 APPLIC TOPIC TID, #28 APPLIC Prov: Pierre Welch MD 04/20/20 Cephalexin* (KEFLEX*) 500 Mg Capsule 500 MG ORAL EVERY 12 HOURS, #14 CAP 0 Refills Prov: Pierre Welch MD 04/20/20 Pierre Welch MD Apr 20, 2020 11:44
[2020-04-20 12:30] LABS: APPEARANCE,URINE SLIGHTLY CLOUDY; BILIRUBIN, URINE NEGATIVE (NEGATIVE); COLOR,URINE PALE YELLOW; GLUCOSE, URINE (UA) 4+ (NEGATIVE); KETONES,URINE NEGATIVE (NEGATIVE); LEUKOCYTE ESTERASE ,URINE NEGATIVE (NEGATIVE); NITRITE,URINE NEGATIVE (NEGATIVE); PH,URINE 5 (4.5-8.0); PROTEIN,URINE NEGATIVE (NEGATIVE); UROBILINOGEN,URINE NORMAL MG/DL (0.0-1.0)
[2020-04-20] MEDS ORDERED: CEPHALEXIN500 MG ORAL (12:44)
[2020-04-20] MEDS ORDERED: BENADRYL CRE1 APPLIC TOPIC (12:44)
== END 2020-04-20 13:02 | disposition home or self-care (01) ==
LOC: EMR 12:50
DX: N39.0 Urinary tract infection, site not specified (principal); E11.9 Type 2 diabetes mellitus without complications; Z79.4 Long term (current) use of insulin
CPT/HCPCS: 81003; 87086; 87210; Z7502; 99283